=== PATIENT | female | born 1980 | race Caucasian/White ===

== ENCOUNTER → 2021-08-16 15:17 | Outpatient (CLI) | payer BC, SELFPAY ==
--- NOTE | ~2021-08-16 | MM_ITS ---
EXAMINATION: MM screening arlyn BI w [facility] HISTORY: Screening mammogram TECHNIQUE: Craniocaudal and mediolateral oblique 3-D tomosynthesis images were obtained and synthetic 2-D images were generated. CAD analysis was submitted and interpreted. COMPARISON: No prior mammogram is available for comparison at this institution. BREAST PARENCHYMAL COMPOSITION: There are scattered areas of fibroglandular density. FINDINGS: There is no evidence of suspicious mass, calcification, or architectural distortion to sugg est malignancy in either breast. There has been no suspicious interval change. IMPRESSION: 1. No mammographic evidence of malignancy. 2. Recommend routine screening mammography in one year. BI-RADS Category 1: Negative Reviewed, dictated and finalized at location A.
== END ==
PROVIDERS: PCP Nurse Practitioner; Visit Provider Nurse Practitioner
DX: Z12.31 Encounter for screening mammogram for malignant neoplasm of breast (principal)
CPT/HCPCS: 77063; 77067

== ENCOUNTER 2023-09-30 09:01 | Outpatient (CLI) | payer BC, SELFPAY ==
--- NOTE | ~2023-09-30 | MM_ITS ---
EXAMINATION: MM screening arlyn BI w roxana HISTORY: Screening TECHNIQUE: Craniocaudal and mediolateral oblique 3-D tomosynthesis images were obtained and synthetic 2-D images were generated. CAD analysis was submitted and interpreted. COMPARISON: 08/16/2021 BREAST PARENCHYMAL COMPOSITION: Not dense: There are scattered areas of fibroglandular density. FINDINGS: There is no evidence of suspicious mass, calcification, or architectural distortion to sugg est malignancy in either breast. There has been no suspicious interval change. IMPRESSION: 1. No mammographic evidence of malignancy. 2. Recommend routine screening mammography in one year. BI-RADS Category 1: Negative Reviewed, dictated and finalized at location B.
== END 2023-09-30 09:02 | disposition home or self-care (01) ==
PROVIDERS: PCP Nurse Practitioner; Visit Provider Nurse Practitioner
DX: Z12.31 Encounter for screening mammogram for malignant neoplasm of breast (principal)
CPT/HCPCS: 77063; 77067

== ENCOUNTER 2024-08-02 09:16 | Observation (INO) | payer BC, SELFPAY ==
[2024-08-02] VITALS (15 sets, daily range): BP systolic 104–142; BP diastolic 57–98; PULSE 79–125; RESP 13–18; TEMP 36.3–36.8; O2SAT 99–100; BMI 32.1
--- NOTE | 2024-08-02 09:37 | ED_ITS ---
HPI - General Adult General Chief complaint: Vaginal Bleeding Stated complaint: vag bleeding for 35 days Time Seen by Provider: 08/02/24 09:23 History of Present Illness HPI narrative: Nuha Johnson is a 43 y/o female who presents with complaints of having vaginal bleeding for 35 days. She states that she has seen her OBGYN Dr. Shoemaker and her PCP for this. She had an US completed 2 weeks ago and states that she has fibroids and a cyst on her ovary, she was started on control and scheduled for a hysterectomy for August 16. She states that since starting the control she was having severe headaches and not feeling well so she stopped the bc and states the vaginal bleeding returned worse. She stopped the bc 5 days ago and then restarted it 2 days ago and feels that bleeding has improved a little since restarting but feels that this is affecting her daily living and difficult to go to work because of the bleeding and she is feeling. Denies headache/chest pain/sob at this time. She states she feels more abdominal cramping then before over the past few days Related Data Home Medications ?Medication ?Instructions ?Recorded ?Confirmed ?Last Taken ?Type No Home Medications 08/02/24 08/02/24 Unknown History Allergies Allergy/AdvReac Type Severity Reaction Status Date / Time No Known Allergies Allergy Verified 08/02/24 09:55 Review of Systems 2 Review of Systems: All systems reviewed & are unremarkable except as noted in HPI and below PMFSH Social History Social History Smoking status: Never smoker Alcohol intake: never Substance use: never Do You Feel Safe in your Home?: Yes Lack of Transportation: No Lack of Food: Never True Current Housing: I Have Housing Concerned About Future Housing: No Difficulty Paying Gas/Electric Bills: No Difficulty Paying for Meds: No Currently Unemployed: No Education: High School Diploma/GED Difficulty w/ Childcare or Family Care: No Spiritual care concerns: No Exam 2 Narrative: GENERAL: Well-appearing, well-nourished, and in no acute distress. HEAD: Normocephalic, atraumatic. EYES: PERRLA and EOMI. ENT: Nares clear, no rhinorrhea or epistaxis. Mucous membranes moist. Oropharynx without tonsillar hypertrophy exudate or other lesions. NECK: Supple. No adenopathy or masses. No carotid bruits or JVD CHEST: Clear to auscultation. No respiratory distress. No wheezes rales or rhonchi HEART: Regular rate and rhythm. No murmur heard. Normal peripheral pulses. ABDOMEN: Soft, nontender, nondistended, normal active bowel sounds. EXTREMITIES: Normal range of motion. No edema. SKIN: Warm, dry, no rash. NEURO: No focal deficits. Alert and oriented x3. PSYCH: Normal mood and affect. Course Vital Signs Vital signs: Vital Signs Temperature 36.7 C 08/02/24 09:41 Pulse Rate 93 08/02/24 09:41 Respiratory Rate 16 08/02/24 09:41 Blood Pressure 142/98 H 08/02/24 09:41 Pulse Oximetry 99 08/02/24 09:41 Oxygen Delivery Room Air 08/02/24 09:41 Temperature 36.3 C L 08/02/24 17:20 Pulse Rate 125 H 08/02/24 17:20 Respiratory Rate 18 08/02/24 17:20 Blood Pressure 122/76 08/02/24 17:20 Pulse Oximetry 100 08/02/24 17:20 Oxygen Delivery Room Air 08/02/24 15:26 Medical Decision Making MDM Narrative Medical decision making narrative: 43 y/o with continued and maybe worsening vaginal bleeding for 35 days. scheduled for a hysterectomy on August 16 concern for : anemia/ dehydration/ CBC: Hemoglobin 7.2, hematocrit 23.1, platelets 552 CMP- Glucose 116 UA- trace ketones, blood urine preg- Negative PT / INR- within normal limits Pelvic exam - + active bleeding, with clots unable to visualize the cervix Consulted with Dr. Shoemaker who recommends admitting pt for q6 IV Estrogen and transfuse 2 units of PRBC Patient updated on plan and is agreeable to this plan Medical Records Medical records reviewed: Yes I reviewed the external patient's medical records. Vital Signs Vital Signs: Vital Signs Temperature 36.7 C 08/02/24 09:41 Pulse Rate 93 08/02/24 09:41 Respiratory Rate 16 08/02/24 09:41 Blood Pressure 142/98 H 08/02/24 09:41 Pulse Oximetry 99 08/02/24 09:41 Oxygen Delivery Room Air 08/02/24 09:41 Temperature 36.3 C L 08/02/24 17:20 Pulse Rate 125 H 08/02/24 17:20 Respiratory Rate 18 08/02/24 17:20 Blood Pressure 122/76 08/02/24 17:20 Pulse Oximetry 100 08/02/24 17:20 Oxygen Delivery Room Air 08/02/24 15:26 Vitals reviewed by me Lab Data Lab results reviewed: Yes I reviewed the patient's lab results. 08/02/24 09:50 08/02/24 09:50 Labs: Lab Results 08/02/24 08/02/24 08/02/24 Range/Units 09:50 09:57 11:57 WBC 6.3 (4.5-10.0) K/mm3 RBC 2.76 L (4.2-5.4) M/mm3 Hgb 7.2 L (12.0-15.0) g/dL Hct 23.1 L (37.0-47.0) % MCV 83.7 (80-100) fl MCH 26.1 (26-34) pg MCHC 31.2 L (32-36) g/dl RDW 13.7 (11.5-14.5) % Plt Count 552 H (150-375) k/mm3 MPV 9.0 (7.4-10.4) fl Immature Gran % (Auto) 0.3 (0-0.5) % Neut % (Auto) 63.1 (45.5-73.1) % Lymph % (Auto) 26.8 (18.3-44.2) % [place] % (Auto) 7.3 (2.6-8.5) % Eos % (Auto) 2.2 (0-4.4) % Baso % (Auto) 0.3 (0.2-1.2) % Lymph # (Auto) 1.70 (0.9-3.2) K/mm3 [place] # (Auto) 0.5 (0.1-0.6) K/mm3 Eos # (Auto) 0.1 (0-0.3) K/mm3 Baso # (Auto) 0.0 (0.0-0.1) K/mm3 Abs Immat Gran (auto) 0.02 (0.00-0.031) K/mm3 Absolute Neuts (auto) 4.0 (1.3-6.7) K/mm3 Absolute Nucleated RBC 0.000 (0.0-0.012) K/mm3 Nucleated RBC % 0.0 (0.0-0.2) % PT 13.0 (11.1-14.7) Seconds INR 1.0 APTT 26.1 (22.3-36.8) Seconds Sodium 137 (137-145) mmol/L Potassium 3.8 (3.4-5.0) mmol/L Chloride 107 (98-107) mmol/L Carbon Dioxide 22 (22-30) mmol/L Anion Gap 8 (4-12) mmol/L BUN 9 (7-17) mg/dL Creatinine 0.76 (0.7-1.0) mg/dL Estim Creat Clear Calc 79 ml/min Estimated GFR > 60 (59 - ) Glucose 116 H (65-110) mg/dL Calcium 8.8 (8.4-10.2) mg/dL Total Bilirubin 0.2 (0.2-1.3) mg/dL AST 17 (14-36) U/L ALT 12 (6-35) U/L Alkaline Phosphatase 63 (38-126) U/L Total Protein 6.9 (6.3-8.2) g/dL Albumin 3.8 (3.5-5.1) g/dL Urine Color Yellow (Yellow) Urine Appearance Clear (Clear) Urine pH 5.0 (5.0-9.0) Ur Specific Kevin 1.030 (1.001-1.035) Urine Protein Trace (Negative) mg/dL Urine Glucose (UA) Negative (Negative) mg/dL Urine Ketones Trace H (Negative) mg/dL Ur Blood (Man) 3+ H (Negative) Urine Nitrate Negative (Negative) Urine Bilirubin Negative (Negative) Urine Urobilinogen 0.2 (<2.0) mg/dL Leukocyte Esterase Rfl Negative (Negative) ISAAC/UL Urine RBC >100 H (0-2) /hpf Urine WBC 0-5 (0-3) /hpf Ur Squamous Epith Cells None seen (Few) /hpf Urine Bacteria None seen /hpf Urine Casts 0-2 POC Urine HCG, Qual Negative (Negative) Blood Type O Positive Antibody Screen Negative Crossmatch See Detail Discharge Plan Discharge Clinical Impression: Abnormal vaginal bleeding, Dysfunctional uterine bleeding Anemia Qualifiers: Anemia type: unspecified type Qualified Code(s): D64.9 - Anemia, unspecified Patient Disposition: Still a Patient Condition: Stable Time of Disposition: 19:16
--- OUTSIDE RECORDS SUMMARY | 2024-08-02 09:46 | XMS_ITS | Data Portability ---
Author Organization [facility] Address [address] [place] [address] Assessment Encounter Date Assessment Date Assessment LastModified by Organization Details LastModified Time 2023 2023 Annual gynecological exam performed. Patient will come back in a year unless there are new symptoms. [email or web address] Not available 2023 10:25:34 Plan of Treatment Reminders Order Date Submit Date Provider Last Modified By Organization Details Last Modified Time Details Appointments SURG PRE OP 2024 03:15P Remigio SHOEMAKER MD Not available Not available Not available SURG Total Lap Hyst 2024 09:45A Remigio SHOEMAKER MD Not available Not available Not available SURG POST OP 2024 09:30A Remigio SHOEMAKER MD Not available Not available Not available WE[facility]OM[facility]-EST 2024 08:15A NARESH Stacy Not available Not available Not available Lab dhea-sulf ate, serum [address] [facility] (Lab), [address], [place], [address], 07/17/2024 15:23:39 hormone panel, serum or plasma [address] [facility] (Lab), [address], [place], [address], 07/17/2024 15:23:40 progester one, serum [address] [facility] (Lab), [address], [place], [address], 07/17/2024 15:23:39 prolactin , serum [address] [facility] (Lab), [address], [place], [address], 07/17/2024 15:23:40 shbg (sex hormone-b inding globulin) , serum [address] [facility] (Lab), [address], [place], [address], 07/17/2024 15:23:41 TSH, serum or plasma [address] [facility] (Lab), [address], [place], [address], 07/17/2024 15:23:41 testoster one free/test osterone total, ratio, serum [address] [facility] (Lab), [address], [place], [address], 07/17/2024 15:23:42 CBC w/ diff [address] [facility] (Lab), [address], [place], [address], 07/18/2024 04:04:47 test, urine 2024 025 [facility], [address], [address], [place], [address], 07/11/2024 14:09:09 Referral None recorded. Procedures None recorded. Surgeries total abdominal hysterect marcial with salpingec luzmaria (SURG) 2024 025 [email or web address] [facility], [address], [place], [address], 07/21/2024 11:57:58 Imaging US, pelvis 2024 025 [email or web address] [address], [address], [place], [address], 07/12/2024 21:37:50 US, transvagi nal 2024 025 [email or web address] [address], [address], [place], [address], 07/12/2024 21:37:50 MAMMO, screening , digital, bilateral 2023 024 [facility], [address], [place], [address], 09/30/2023 12:27:58 Medication Orders None recorded. Patient TargetsNo targets recorded. Patient InstructionsNo instructions recorded. Reason for Referral None Reported. Results Created Date Observation Date Name Description Value Unit Range Abnormal Flag Note LastModifiedBy Organization Detail LastModifiedTime 09/24/19 24 2023 IMAGE GUIDE D PAP AND HPV REGAR DLESS image guided Pap, HPV regardless of Pap result SEE RESULT S BELOW CASE REPOR T: Cytol ogy Gynec ologi cele Repor t Case: [id number] Autho roxana ramirez Provi michael: Alisha Anderson, JEFFREY Colle cted: 09/23 1606 Order ing Locat ion: [place] Patho logy Recei man: 09/24 0049 First Scree n: Deanna Spangler ay, CT Speci men: Screvitaliy perdue Pap - Image d, Cervi x STATE MENT OF ADEQU ACY: Satis facto ry for evalu ation Trans forma tion zone compo nent prese nt ----- ----- ----- ----- ----- ----- ----- ----- ----- ----- ----- ----- ----- ----- ----- ----- ----- ---- FINAL DIAGN OSIS: Negat sofi for Intra epith elial Navjot sutton or Kitty garduno (NIL) . Ileanaa l organ isms morph ologi tanisha consi stent with Susana da spp. Elect kenney garcia valeri d by Deanna Spangler, CT on 024 at 8:56 AM ----- ----- ----- ----- ----- ----- ----- ----- ----- ----- ----- ----- ----- ----- ----- ----- ----- ---- HPV RESUL TS: HPV mRNA E6/E7 : No HPV mRNA Detec gilberto NOTE: This high risk HPV mRNA assay detec ts fourt een high- risk HPV types (16, 18, 31, 33, 35, 39, 45, 51, 52, 56, 58, 59, 66, 68) witho ut diffe renti ation . COMME NT: This speci men was revie wed by a Cytot echno logis t and/o r Patho logis t (as indic ated in this repor t) after evalu ation using the Thinp rep Imagi ng Syste m. CLINI CELE INFOR MATIO N: Menst rual Statu s: LMP (if appli cable ): 2023 Clini cele Histo ry/Pr eviou s Pap: Type of Neopl beatrice (if appli cable ): Signi fican t Clini cele Findi ngs: Other Histo ry: Hormo dario (if appli cable ): PAP EDUCA TYSON L NOTE: The Pap Test is a scree nette test with an inher ent false negat sofi rate. Liqui d-bas ed sampl ing may decre ase, but will not elimi natasha, false negat sofi resul ts. A negat sofi resul t does not precl ude the prese nce and/o r devel opmen t of disea se, since the prese nce of abnor mal cells in the sampl e depen ds on the locat ion of the lesio n and sampl ing techn ique. Faye nued regul ar scree nette is the best metho d of cance r preve ntion . If repor gilberto cytol ogic findi ng do not corre late with physi cele and/o r histo rical findi ngs, furth er inves tigat ion is recom maryanne d, as clini tanisha zepeda nted. Not Available [facility] (Lab) [address], [place], [address], 10/01/2023 10:00:20 07/12/19 25 07/11/2024 pregn law test, urine HCG negati ve Not Available [facility] [address], [place], [address], 07/11/2024 14:09:02 07/16/19 25 07/15/2024 SURGI CELE PATHO LOGY surgical pathology SEE RESULT S BELOW CASE REPOR T: Surgi cele Patho logy Repor t Case: [id number] Autho roxana Provi michael: Jennifer Shoemaker MD Colle cted: 07/15 1507 Order ing Locat ion: [place] Patho [place]y Recei man: 07/16 0042 Patho logis t: Abdulaziz Ahmadi MD Speci men: Radha simmons, EMB ----- ----- ----- ----- ----- ----- ----- ----- ----- ----- ----- ----- ----- ----- ----- ----- ----- ---- FINAL DIAGN OSIS: Endom etriu m, biops y: -Rare minut e super ficia l strip s of inact sofi radha simmons. -No evide nce of hyper plasi a or malig laureen . -Frag ments of babar barrios erbert al mucos a. Elect kenney trammell d by Abdulaziz Ahmadi MD on 2024 at 1001 CDT ----- ----- ----- ----- ----- ----- ----- ----- ----- ----- ----- ----- ----- ----- ----- ----- ----- ---- CLINI CEEL INFOR MATIO N: ABNOR MAL UTERI NE BLEED ING MICRO SCOPI C DESCR IPTIO N: A micro scopi c exami natio n was perfo rmed. Digit al imagi ng was used in the diagn ostic asses sment of this case. GROSS DESCR IPTIO N: A. Endom etriu m. The speci men is label ed with the patie nt's name and demog raphalf cs only. Recei man in forma brianna is a 5.1 x 2.0 x 0.3 [address] gate of dark red tissu e. The entir e speci mino is submi tted in casse ttes A1-A4 . Gross ed by Briseida Blanca on Not Available [facility] (Lab) [address], [place], [address], 07/19/2024 11:05:10 09/30/19 24 09/30/2023 MAMMO , karinevitaliy nette, digit al, bilat eral No observ ation record ed. [place] [id number], [place], [address], 10/01/2023 10:12:56 07/13/19 25 07/12/2024 US, pelvi s No observ ation record ed. [email or web address] [facility] [address], [place], [address], 07/12/2024 15:17:52 07/13/19 25 07/12/2024 US, trans josh al No observ ation record ed. [email or web address] [facility] [address], [place], [address], 07/12/2024 15:18:00 07/13/19 25 07/12/2024 US, talita salvador No observ ation record ed. [email or web address] [address], [place], [address], 07/13/2024 15:18:59 Result Notes None recorded. Procedures Surgical History Date Name Laterality Status Provider Name and Address Organization Details Recorded Time 07/16/19 25 Endometrial Biopsy completed Linwood Shoemaker MD [address], [place], [address], [facility] 07/15/2024 17:11:55 09/30/19 24 Date of Last Mammogram completed [facility] 07/11/2024 10:31:52 09/24/19 24 Date of Last Pap Smear completed Parris Duenas [facility] 07/15/2024 12:33:02 11/09/19 08 section completed [facility] 07/11/2024 10:34:03 08/26/19 06 Caesarean Section completed Ivory Saha [facility] 2023 15:18:20 Imaging Results None recorded. Procedure Notes None recorded. Medical Equipment None Reported. Allergies No known drug allergies Medications Not known to be on any medication Vitals Date Recorded Body height Body mass index (BMI) Body weight Systolic blood pressure Diastolic blood pressure Provider Name and Address Organization Details Last Updated DateTime 07/11/2024 157.48 cm 32.2 kg/m2 37590.98 g 125 mm[Hg] 84 mm[Hg] [facility] 10:30:19 Date Recorded Body height Body mass index (BMI) Body weight Systolic blood pressure Diastolic blood pressure Provider Name and Address Organization Details Last Updated DateTime 07/15/2024 157.48 cm 31.6 kg/m2 29387.48 g 131 mm[Hg] 87 mm[Hg] Parris Duenas [facility] 05/23/202 5 12:32:20 Date Recorded Body height Body mass index (BMI) Body weight Systolic blood pressure Diastolic blood pressure Provider Name and Address Organization Details Last Updated DateTime 07/21/2024 157.48 cm 32 kg/m2 35788.66 g 108 mm[Hg] 77 mm[Hg] RICCI Rich [facility] 5 10:14:17 Date Recorded Body height Body mass index (BMI) Body weight Systolic blood pressure Diastolic blood pressure Provider Name and Address Organization Details Last Updated DateTime 2023 157.48 cm 29.8 kg/m2 73023.56 g 137 mm[Hg] 86 mm[Hg] Ivory Saha [facility] 4 15:17:34 Social History Question Answer Notes LastModified by Organizat ion Details LastModified Time Tobacco Smoking Status Never Smoker Beth olivera, [facility] 06/18/2021 10:07:09 How Many Years Have You Consumed Alcohol? 10 Information not available 06/18/2021 Are You Blind Or Do You Have Difficulty Seeing? No Information n ot available 06/14/2021 What Is Your Level Of Caffeine Consumption? Occasional Information not available 06/18/2021 How Much Tobacco Do You Chew? None Information not available 06/18/2021 In The 14 Days Before Symptom Onset, Have You Had Close Contact With A Laboratory-confirm ed COVID-19 While That Case Was Ill? No Information n ot available 06/18/2021 In The 14 Days Before Symptom Onset, Have You Had Close Contact With A Person Who Is Under Investigation For COVID-19 While That Person Was Ill? No Information not available 06/18/2021 Have You Been To An Area Known To Be High Risk For COVID-19? No Information not available 06/18/2021 Are You Deaf Or Do You Have Serious Difficulty Hearing? No Information not available 06/14/2021 What Type Of Diet Are You Following? REGULAR Information n ot available 06/14/2021 What Is The Highest Grade Or Level Of School You Have Completed Or The Highest Degree You Have Received? [id number] Information not available 06/18/2021 Are There Any Guns Present In Your Home? No Information not available 06/18/2021 Do You Use Protection During Sex? No Information not available 06/18/2021 Do You Use Your Seat Belt Or Car Seat Routinely? Yes Information not available 06/18/2021 Do You Have Smoke And Carbon Monoxide Detectors In Your Home? Yes Information not available 06/18/2021 How Much Tobacco Do You Smoke? No Information not available 06/18/2021 Do You Use Sunscreen Routinely? No Information not available 06/18/2021 Have You Used IV Drugs? No [email or web address] Information not available 07/15/2024 Do You Have Difficulty Walking Or Climbing Stairs? No Information not available 06/18/2021 Sex: Unknown Functional Status Question Answer Note LastModified by Organizat ion Details LastModified Time Do you use any illicit or recreational drugs? No Information not available 06/18/2021 What is your level of alcohol consumption? None Information not available 2023 Are you able to walk? YESWOREST Information not available 06/14/2021 Are you able to care for yourself? 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 No Information not available 06/18/2021 What is your exercise level? Occasional Information not available 06/14/2021 Mental Status Question Answer Note LastModified by Organization D etails LastModified Time Do you feel stressed (tense, restless, nervous, or anxious, or unable to sleep at night)? [id number] Information not available 06/18/2021 Family History Relationship Description Onset Age of this Age Resolved Age Notes LastModified by Organization Details LastModified Time Mother Malignant tumor of breast Not available 2021 12:16:29 Medical History Condition Response Allergies (Food, seasonal, environmental ) N Other N Drug/Latex Allergies/Reactions N Breast Cancer N Blood Transfusion N Lung Disease N Dermatologic Disorders N Defects or Inherited Disease N Breast Problem N Gestational Diabetes N Hematologic disorders N Anesthesia Complications N History of STI N Deep Vein Thrombosis N Polycystic ovary syndrome N Anxiety Disorder N Autoimmune disease N Arthritis N Polyps N Infertility N History of abnormal pap N Acid Reflux (GERD) N Cancer N Varicosities N Stroke N Neurologic/Epilepsy N Endometriosis N High Cholesterol N Headaches N Fibromyalgia N Kidney Disease N Heart Problems N Thyroid Problems N Kidney or Bladder Problems N GI Problems N Eating Disorder N Anemia N Art (IVF or FET) N Psychiatric Illness N Ovarian Cancer N Diabetes N Pulmonary (TB, Asthma) N Hepatitis/Liver Disease N No Past Medical History N Eczema N Urinary Tract Infection N Abuse/Domestic Violence N Asthma N Trauma/Violence N Depression/ depression N Heart Disease N Pre-Eclampsia N Hypertension N Osteoporosis N Thrombophilias N Gynecological History Statement/Question Response Date of Last Mammogram 09/30/2023 Flow Moderate Date of LMP 06/20/2024 N Was last menstrual period normal N STIs/STDs N Date of Last Colonoscopy Desired Control Method None Abnormal Pap N On BCP's at Conception? N HPV Vaccine N Current Control Method Partner Vas ectomy Age at First Child 24 Are cycles usually normal Y Frequency of Cycle (Q days) 29 Sexually Active? Y Menses Monthly Y Date of DEXA bone scan Age of first menstrual cycle 11 Date of Last Pap Smear 2023 Sexual Problems? N LMP Definite N Obstetrics History GPAL:G 2 P 2 0 0 2 Type Value Full Term 2 Living 2 Total 2 Past Encounters Encounter ID Performer Location Encounter Start Date Encounter Closed Date Diagnosis/Indication Diagnosis SNOMED-CT Code Diagnosis ICD10 Code Diagnosis Note [id number] NARESH Gamble [facility] [address] [address] 06/18/2021 09:53:55 06/18/2021 10:30:25 Family history of breast cancer 414427370 Z80.3 Gynecologi c examination 21213018 Z01.419 Suggested Calcium with Vitamin D 1200-1500m g daily. Patient advised to get an annual flu shot in the fall and she could obtain at [facility] or [facility]. Also to obtain TDap vaccinatio n if you have not had one in the last 10 years. Recommend yearly mammograms . Encouraged monthly self breast exams. Encourage safe sexual practices, to use condoms and limit partners if not already in a monogamous relationsh ip. Engage in daily exercise of low impact aerobic exercise 45-60 minutes 4-5 times weekly. Avoid tobacco and illicit drugs as well as using moderation with alcohol intake less than 1-2 8 oz beverages daily. This lifestyle behavior pattern will lead to less health conditions and longer life span. If BMI greater than 25 weight watchers or dietary consult advised. All questions have been answered. Patient appears to understand informatio n, but if you have any questions please call or respond to this email. Here today for WWE. No gynecologi c issues today.Last pap 2016, normal. No hx of abnormal paps.Pap done todayMammo gram order given, this will be her firstHer mother had breast cancer diagnosed around age 64. We discussed genetic testing, she would like to have this done today. Invitae order given to patient.BP today 138/88, she does not have a PCP. I encouraged her to establish care with a PCP for routine labs and BP check. She will call to schedule one.STI testing declinedRT C in one year for WWE or sooner if needed [id number] NARESH Gamble [facility] [address] [address] 2023 15:03:25 2023 15:56:13 Gynecologic examination 93716239 Z01.419 Z11.51 WWEpap updatedde lined STI screenmamm ogram order givenencou raged annual exam with PCP Patient advised to get an annual flu shot in the fall and she could obtain at local pharmacy. Also to obtain TDap vaccinatio n if you have not had one in the last 10 years. Recommend yearly mammograms . Encouraged monthly self breast exams. Encourage safe sexual practices. Engage in regular exercise. Avoid tobacco and illicit drugs. This lifestyle behavior pattern will lead to less health conditions and longer life span. If BMI greater than 25 dietary consult advised. All questions have been answered. Screening for malignant neoplasm of breast 214448412 Z12.39 [id number] NARESH Gamble [facility] [address] [address] 07/11/2024 09:39:34 07/12/2024 15:09:53 Abnormal uterine bleeding 5448092547 9100 N93.9 UPT (-)Discuss ed recent irregular bleedingla bs ordered, pelvic u/s ordereddis cussed management options (pending results)qu estions answered, precaution s discussed Time spent in visit is a total of 25 mins with at least 50% of visit consisting of counseling and review of plan of care. Patient is to contact office or go to nearest ED/Urgent care if fever >/= 100.1, pain, excessive bleeding, unusual drainage or swelling in area of concern; or experienci ng worsening sx's or new onset of concerning sx's. Understand ing verbalized . All questions answered to patient satisfacti on. [id number] Linwood Shoemaker MD [facility] [address] [address] 07/12/2024 14:22:02 07/12/2024 15:05:52 Menometrorrhagia 024433979 N92.1 [id number] Linwood Shoemaker MD [facility] [address],[place] [address] 07/15/2024 12:23:44 07/18/2024 07:30:59 Endometrium thickened 010250731 R93.89 endometria l biopsy was performed without complicati ons. She tolerated it well. [id number] Linwood Shoemaker MD [facility] [address],[place] [address] 07/21/2024 09:38:57 07/21/2024 10:51:28 Menometrorrhagia 408731024 N92.1 Intramural leiomyoma of uterus 46947446 D25.1 D25.0 D25.2 This patient is a 43-year-ol d female presents for heavy vaginal bleeding. She has longstandi ng very heavy bleeding. Her menses are regular. However, they require double protection . Patient has accidents, getting blood on her bedding and clothing. Is affected work. She changes a pad or tampon every hour. She leaks blood around the pad and tampon. This bleeding has a profound impact on her quality of life and her activities of daily living. Patient has large myomas and a very large uterus. We discussed the etiology, natural history, treatment of fibroid tumors. I spent over 30 minutes on her care in total. She would like definitive surgical treatment. We agreed to move forward with total abdominal hysterecto my and bilateral salpingect marcial. The patient understand s the procedure. The procedure was described to the patient in great detail. the patient also understand s the risks. The risks were also explained in detail. She understand s that injuries May occur during surgery. She understand s these injuries can result in hospitaliz ation, more surgery, and severe illness. She understand s there is risk of hemorrhage and infection. Health Concerns Section Related Observation LastModified by Organization Detai ls LastModified Time None Recorded Concern Status LastModified by Organization Details LastModified Time None Recorded Advance Directives Directive None Recorded Payers Encounter Date Sequence Insurance Name Policy Number Policy Goodwin Covered Member ID Goodwin Member ID Guarantor Name 2023 1 [place] [id number] Nuha Rocaon [id number] Nuha Johnson 07/11/2024 1 [place] [id number] Nuha Johnson [id number] Nuha Johnson 07/12/2024 1 [place] [id number] Nuha Johnson [id number] Nuha Johnson 07/15/2024 1 [place] [id number] Nuha Rocaon [id number] Nuha Johnson 07/21/2024 1 [place] [id number] Nuha Johnson [id number] Nuha Johnson Notes Date Note Type Note Provider Name and Address Organization Details Recorded Time text/html Annual GYNReported bypatient.Menstrual cycle:Normal menses Urinary symptoms:No hematuria; No incontinence Vulva:No genital lesion Vagina:Normal vaginal discharge Breast:No breast pain; No breast lump; No nipple discharge Sexual complaints:No sexual complaints; No pain during intercourse; Normal libido Menopausal Symptoms:No menopausal symptoms; Normal vaginal lubrication Psychological symptoms:No depression; No anxiety; No PMDD Preventive measures:Encourage self breast examination; Encourage regular exercise; Encourage no tobacco use; Encourage regular mammograms starting age 39Notes:43yo WWEno h/o abnormal papslast pap 05/2021 : nilm, HPV (-)mammogram last 2021 NARESH Gamble [address], [place], [address], [facility] 2023 15:48:55 5 text/html 43yo [id number] for evaluation of recent irregular periodhistorically has been having monthly periods, lasting 5 days, moderate to light flowLMP started 06/20/2024 and still continues. She is changing her pad every 4-5 hours at most.BC - partner with vasectomylast pap 09/2023 : nilm, HPV (-) NARESH Gamble [address], [place], [address], [facility] 07/12/2024 13:45:02 5 text/html this patient is a 43-year-old female presents for endometrial biopsy. The procedure was explained to the patient in detail. She understands the procedure. She understands the risks, benefits, and alternatives. She has completed the informed consent process and is ready to proceed. Linwood Shoemaker MD [address], [place], [address], [facility] 07/15/2024 17:12:40 5 text/html This patient is a 43-year-old female presents for heavy vaginal bleeding. She has longstanding very heavy bleeding. Her menses are regular. However, they require double protection. Patient has accidents, getting blood on her bedding and clothing. Is affected work. She changes a pad or tampon every hour. She leaks blood around the pad and tampon. This bleeding has a profound impact on her quality of life and her activities of daily living. Patient has large myomas and a very large uterus. We discussed the etiology, natural history, treatment of fibroid tumors. I spent over 30 minutes on her care in total. She would like definitive surgical treatment. We agreed to move forward with total abdominal hysterectomy and bilateral salpingectomy. The patient understands the procedure. The procedure was described to the patient in great detail. the patient also understands the risks. The risks were also explained in detail. She understands that injuries May occur during surgery. She understands these injuries can result in hospitalization, more surgery, and severe illness. She understands there is risk of hemorrhage and infection. Linwood Shoemaker MD [address], [place], [address], [place] [facility] 07/21/2024 10:45:45 OBGyn Episode Ob Episode Information Episode Created Date Number of Fetuses Patient Bloodtype Patient rh Status Prepregnancy Weight lbs Domestic Partner Domestic Partner Phone Father Name Process Description Writer Status 06/15/19 22 1 CLOSED Fetus Data First Name Last Name Admitted to NICU Weight (g) Sex Living Outcome Pediatric Complications Fetus ID Race Codes Race Delivery Type Full Term [id number] Primary Marty Calculation Initial Marty Date Initial Exam Date Initial Exam Provider Initial Ultrasound Date Last Menstrual Period Date Ultra Sound Weeks Gestation 0 Eighteen To Twenty Week Marty Update Ultra Sound Date Fundal Height At Umbil Quickening Date Ultra Sound Latest Weeks Gestation Final Marty Confirmed By Final Marty Confirmed Date Final Marty Date Ultra Sound Latest Days Gestation 0 0 Menstrual History Last Menstrual Date Menses Monthly On Bcp Conception Prior Menses Frequency Hcg Plus Date Menarche Onset Age Delivery Information Delivery Date Delivery Type Labor Anesthesia Weeks Gestation Incision Type Labor Labor Length Hrs Delivered By Post Complications Tubal Sterilization Discharge Date Comments 6 Discharge Information Feeding Method Contraceptive Method Maternal HG B and HCT Levels Ob Episode Information Episode Created Date Number of Fetuses Patient Bloodtype Patient rh Status Prepregnancy Weight lbs Domestic Partner Domestic Partner Phone Father Name Process Description Writer Status 06/15/19 22 1 CLOSED Fetus Data First Name Last Name Admitted to NICU Weight (g) Sex Living Outcome Pediatric Complications Fetus ID Race Codes Race Delivery Type Full Term [id number] Repeat Marty Calculation Initial Marty Date Initial Exam Date Initial Exam Provider Initial Ultrasound Date Last Menstrual Period Date Ultra Sound Weeks Gestation 0 Eighteen To Twenty Week Marty Update Ultra Sound Date Fundal Height At Umbil Quickening Date Ultra Sound Latest Weeks Gestation Final Marty Confirmed By Final Marty Confirmed Date Final Marty Date Ultra Sound Latest Days Gestation 0 0 Menstrual History Last Menstrual Date Menses Monthly On Bcp Conception Prior Menses Frequency Hcg Plus Date Menarche Onset Age Delivery Information Delivery Date Delivery Type Labor Anesthesia Weeks Gestation Incision Type Labor Labor Length Hrs Delivered By Post Complications Tubal Sterilization Discharge Date Comments 8 Discharge Information Feeding Method Contraceptive Method Maternal HG B and HCT Levels
--- OUTSIDE RECORDS SUMMARY | 2024-08-02 09:46 | XMS_ITS | Encounter Summary ---
Author Organization [facility] Address [address] [place] [address] Care Team Providers Care Commissioned Security Officer Name Role Phone Unavailable Primary Care Provider Unavailabl e Encounter Details Date Type Department Care Team (Late st Contact Info) Description 11/05/2007 Outpatient Historical HIS PATIENT [place], [place] [address] [place] [address] Normal Delivery; Deliv Social History Tobacco Use Types Packs/Day Years Used Date Smoking Tobacco: Never Assessed Comments Unknown Sex and Gender Information Value Date Recorded Sex Assigned at Not on file Legal Sex Female 5:37 AM JOB TRAINER Gender Identity Not on file Sexual Orientation Not on file documented as of this encounter Plan of Treatment Not on file documented as of this encounter Procedures Procedure Name Priority Date/Time Associated Diagnosis Comments CBC WITH DIFFERENTIAL Routine 11/08/2007 10:36 AM CDT URINALYSIS W/REFLEX MICROSCOPIC Routine 11/08/2007 10:36 AM CDT TYPE AND SCREEN Routine 11/08/2007 10:36 AM CDT documented in this encounter Results * TYPE AND SCREEN (11/08/2007 10:36 AM CDT) HISTORY CHECK No Historical ABO/Rh [facility] SPECIMEN LIFE 3 days from drawdate [facility] ABO/RH TYPE O Positive [facility] ANTIBODY SCREEN Negative [facility] Blood specimen (specimen) 11/08/2007 10:36 AM CDT us Kun Mccabe MD BLOOD BANK ORDERABLES Edite d Performing Organization Address City/[facility] Co de Phone Number INTERFACE SYSTEM Refer to clinic/hospital department [facility] CLIA# [id number] [address] [place] [address] * (ABNORMAL) URINALYSIS (11/08/2007 10:36 AM CDT) SPECIFIC GRAVITY UA 1.018 1.001 - 1.035 [facility] GLUCOSE UA Negative Negative [facility] BLOOD UA Negative Negative [facility] COLOR UA Yellow [facility] NITRITE UA Negative Negative [facility] BACTERIA UA 1+(A) None Seen /HPF [facility] UROBILINOGEN UA <1 <=1 mg/dL [facility] PH UA 6.0 5.0 - 8.0 [facility] WBC UA 18(H) 0 - 5 /HPF [facility] KETONES UA Negative Negative [facility] CLARITY UA Slt. Cloudy(A) Clear [facility] BILIRUBIN UA Negative Negative [facility] PROTEIN UA Trace(A) Negative [facility] EPITHELIAL CELLS, URINE 5-10 /HPF [facility] LEUKOCYTE ESTERASE UA 2+(A) Negative [facility] RBC UA 1 0 - 4 /HPF [facility] Urine specimen (specimen) 11/08/2007 10:36 AM CDT 11/08/2007 10:37 AM CDT us Kun Mccabe MD URINE ORDERABLES Final Resu lt Performing Organization Address City/[facility]/ZIP Co de Phone Number INTERFACE SYSTEM Refer to clinic/hospital department [facility] CLIA# [id number] [address] [place] [address] * CBC WITH DIFFERENTIAL (11/08/2007 10:36 AM CDT) PLATELETS 191 140 - 350 K/uL [facility] HEMOGLOBIN 12.8 11.8 - 14.8 g/dL [facility] RDW 13.0 11.5 - 14.5 % [facility] WBC 7.0 4.0 - 9.8 K/uL [facility] MCH 31.7 27.2 - 32.6 pg [facility] MPV 11.2 9.3 - 12.4 fL [facility] HEMATOCRIT 37.6 35.5 - 44.0 % [facility] RDW-STDEV 44.0 37.1 - 48.7 fL [facility] RBC 4.04 3.90 - 4.90 M/uL [facility] MCHC 34.0 31.5 - 35.5 % [facility] MCV 93.1 82.0 - 99.0 fL [facility] EOSINOPHILS 1 0 - 7 % [facility] EOSINOPHIL ABSOLUTE 0.04 0.00 - 0.70 K/uL [facility] LYMPHOCYTES 25 16 - 45 % [facility] LYMPHOCYTE ABSOLUTE 1.72 0.70 - 4.50 K/uL [facility] BASOPHILS 0 0 - 2 % [facility] BASOPHILS ABSOLUTE 0.02 0.00 - 0.20 K/uL [facility] MONOCYTES 12 3 - 13 % [facility] MONOCYTE ABSOLUTE 0.82 0.10 - 1.30 K/uL [facility] NEUTROPHILS 63 45 - 70 % [facility] NEUTROPHIL ABSOLUTE 4.40 1.90 - 7.00 K/uL [facility] Blood specimen (specimen) 11/08/2007 10:36 AM CDT 11/08/2007 10:36 AM CDT us Kun Mccabe MD HEMATOLOGY ORDERABLES Edite d INTERFACE SYSTEM Refer to clinic/hospital department [facility] CLIA# [id number] [address] [place] [address] documented in this encounter Visit Diagnoses Diagnosis Normal delivery delivery, without mention of indication, delivered, with or without mention of antepartum condition documented in this encounter
--- OUTSIDE RECORDS SUMMARY | 2024-08-02 09:46 | XMS_ITS | Clinical Summary ---
Author Organization [facility] Address [address] [place] [address] Phone Care Team Providers Care Date Night Caregiver Name Role Phone Provider, None Primary Care Provider Unavailabl e Allergies No known active allergies Social History Tobacco Use Types Packs/Day Years Used Date Smoking Tobacco: Never Smokeless Tobacco: Never Alcohol Use Standard Drinks/Week Comments Yes 5 (1 standard drink = 0.6 oz pur e alcohol) every day AUDIT-C Answer Date Recorded Q1: How often do you have a drink containing alc ohol? Never 12/05/2019 Average Number of Drinks Not on file Frequency of Binge Drinking Not on file 11/23 Comments No Sex and Gender Information Value Date Recorded Sex Assigned at Not on file Legal Sex Female 2:29 PM CDT Gender Identity Not on file Sexual Orientation Not on file Last Filed Vital Signs Vital Sign Reading Time Taken Comments Blood Pressure 126/89 12/05/2019 7:15 PM CDT Pulse 75 12/05/2019 7:15 PM CDT Temperature 36.7 C (98 F) 12/05/2019 2:52 PM CDT Respiratory Rate 14 12/05/2019 7:15 PM CDT Oxygen Saturation 98% 12/05/2019 7:15 PM CDT Inhaled Oxygen Concentration - - Weight 69.9 kg (154 lb) 12/05/2019 2:52 PM CDT Height 157.5 cm (5' 2) 12/05/2019 2:52 PM CDT Body Mass Index 28.17 12/05/2019 2:52 PM CDT Plan of Treatment Health Maintenance Due Date Last Done Comments Hepatitis C Virus (HCV) Screening 1979 TdaP Immunization 1979 Hepatitis B Immunization (1 of 3 - 19+ 3-dose series) 09/23/1998 SARS-COV-2 Immunization (2 - season) 2023 12/19/2020 Influenza Immunization (Seas on Ended) 2024 Respiratory Syncytial Virus (RSV) Immunization (Adult) (1 - 1-dose 75+ series) 09/23/2054 Human Papillomavirus (HPV) Immunization Aged Out No longer eligible b ased on patient's age to complete this topic Meningococcal Immunization (ACWY) Aged Out No longer eligible based on patient's age to complete this topic Pneumococcal Immunization Combined Aged Out No longer eligible based on patient's age to complete this topic Rotavirus Immunization Aged Out No lo nger eligible based on patient's age to complete this topic Insurance [facility] Care Teams Date Night Caregiver Relationship Specialty Start Date End Date Provider, None [place] PCP - General 12/05/19
--- OUTSIDE RECORDS SUMMARY | 2024-08-02 09:46 | XMS_ITS | Clinical Summary ---
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
[2024-08-02 09:58] LABS: Basophils Percent Auto 0.3 % (0.2-1.2); Eosinophils Absolute Auto 0.1 K/mm3 (0-0.3); Eosinophils Percent Auto 2.2 % (0-4.4); Hematocrit 23.1 % (37.0-47.0); Hemoglobin 7.2 g/dL (12.0-15.0); Immature Granulocyte Absolute 0.02 K/mm3 (0.00-0.031); Immature Granulocyte Percent A 0.3 % (0-0.5); Lymphocytes Percent Auto 26.8 % (18.3-44.2); Mean Corpuscular HGB Conc 31.2 g/dl (32-36); Mean Corpuscular Hemoglobin 26.1 pg (26-34); Mean Corpuscular Volume 83.7 fl (80-100); Monocytes Absolute Auto 0.5 K/mm3 (0.1-0.6); Monocytes Percent Auto 7.3 % (2.6-8.5); Neutrophils Percent Auto 63.1 % (45.5-73.1); Platelet Count Result 552 k/mm3 (150-375); Red Blood Count 2.76 M/mm3 (4.2-5.4); Red Cell Distribution Width 13.7 % (11.5-14.5); White Blood Count 6.3 K/mm3 (4.5-10.0)
[2024-08-02 10:00] LABS: BEDSIDEPREGUCG Negative (Negative)
[2024-08-02 10:08] LABS: Alanine Aminotransferase 12 U/L (6-35); Albumin Level 3.8 g/dL (3.5-5.1); Alkaline Phosphatase 63 U/L (38-126); Anion Gap 8 mmol/L (4-12); Aspartate Amino Transferase 17 U/L (14-36); Bilirubin,Total 0.2 mg/dL (0.2-1.3); Blood Urea Nitrogen 9 mg/dL (7-17); Calcium 8.8 mg/dL (8.4-10.2); Carbon Dioxide 22 mmol/L (22-30); Chloride 107 mmol/L (98-107); Estimated CRCL calculation 79 ml/min; Estimated Glomerular Filt Rate > 60; Glucose 116 mg/dL (65-110); Potassium 3.8 mmol/L (3.4-5.0); Sodium 137 mmol/L (137-145); Total Protein 6.9 g/dL (6.3-8.2)
[2024-08-02 10:16] LABS: Partial Thromboplastin Time 26.1 Seconds (22.3-36.8)
--- OUTSIDE RECORDS SUMMARY | 2024-08-02 10:18 | XMS_ITS | Encounter Summary ---
Author Organization [facility] Address [address] [place] [address] Care Team Providers Care Packer Dried Beef Name Role Phone Unavailable Primary Care Provider Unavailabl e Encounter Details Date Type Department Care Team (Late st Contact Info) Description 11/05/2007 Outpatient Historical HIS PATIENT IN A B[place] Glass, [place] 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 Co de Phone Number INTERFACE SYSTEM Refer to clinic/hospital department [facility] CLIA# [id number] [address] [place] [address] * (ABNORMAL) URINALYSIS (11/08/2007 10:36 AM CDT) SPECIFIC GRAVITY UA 1.018 1.001 - 1.035 [facility] GLUCOSE UA Negative Negative [facility] BLOOD UA Negative Negative [facility] COLOR UA Yellow [facility] NITRITE UA Negative Negative [facility] BACTERIA UA 1+(A) None Seen /HPF [facility] UROBILINOGEN UA <1 <=1 mg/dL [facility] PH UA 6.0 5.0 - 8.0 [facility] WBC UA 18(H) 0 - 5 /HPF [facility] KETONES UA Negative Negative [facility] CLARITY UA Slt. Cloudy(A) Clear [facility] BILIRUBIN UA Negative Negative [facility] PROTEIN UA Trace(A) Negative [facility] EPITHELIAL CELLS, URINE 5-10 /HPF [facility] LEUKOCYTE ESTERASE UA 2+(A) Negative [facility] RBC UA 1 0 - 4 /HPF [facility] Urine specimen (specimen) 11/08/2007 10:36 AM CDT 11/08/2007 10:37 AM CDT us Kun Mccabe MD URINE ORDERABLES Final Resu lt Performing Organization Address City/[facility]/ZIP Co de Phone Number INTERFACE SYSTEM Refer to clinic/hospital department [facility] CLIA# [id number] [address] [place] [address] * CBC WITH DIFFERENTIAL (11/08/2007 10:36 AM CDT) PLATELETS 191 140 - 350 K/uL [facility] HEMOGLOBIN 12.8 11.8 - 14.8 g/dL [facility] RDW 13.0 11.5 - 14.5 % [facility] WBC 7.0 4.0 - 9.8 K/uL [facility] MCH 31.7 27.2 - 32.6 pg [facility] MPV 11.2 9.3 - 12.4 fL [facility] HEMATOCRIT 37.6 35.5 - 44.0 % [facility] RDW-STDEV 44.0 37.1 - 48.7 fL [facility] RBC 4.04 3.90 - 4.90 M/uL [facility] MCHC 34.0 31.5 - 35.5 % [facility] MCV 93.1 82.0 - 99.0 fL [facility] EOSINOPHILS 1 0 - 7 % [facility] EOSINOPHIL ABSOLUTE 0.04 0.00 - 0.70 K/uL [facility] LYMPHOCYTES 25 16 - 45 % [facility] LYMPHOCYTE ABSOLUTE 1.72 0.70 - 4.50 K/uL [facility] BASOPHILS 0 0 - 2 % [facility] BASOPHILS ABSOLUTE 0.02 0.00 - 0.20 K/uL [facility] MONOCYTES 12 3 - 13 % [facility] MONOCYTE ABSOLUTE 0.82 0.10 - 1.30 K/uL [facility] NEUTROPHILS 63 45 - 70 % [facility] NEUTROPHIL ABSOLUTE 4.40 1.90 - 7.00 K/uL [facility] Blood specimen (specimen) 11/08/2007 10:36 AM CDT 11/08/2007 10:36 AM CDT us Kun Mccabe MD HEMATOLOGY ORDERABLES Edite d INTERFACE SYSTEM Refer to clinic/hospital department [facility] CLIA# [id number] [address] [place] [address] documented in this encounter Visit Diagnoses Diagnosis Normal delivery delivery, without mention of indication, delivered, with or without mention of antepartum condition documented in this encounter
--- OUTSIDE RECORDS SUMMARY | 2024-08-02 10:18 | XMS_ITS | Clinical Summary ---
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
--- OUTSIDE RECORDS SUMMARY | 2024-08-02 10:18 | XMS_ITS | Clinical Summary ---
Author Organization [facility] Address [address] [place] [address] Phone Care Team Providers Care Hand Embroiderer Name Role Phone Provider, None Primary Care [...] patient's age to complete this topic Insurance [facility] Care Teams Hand Embroiderer Relationship Specialty Start Date End Date Provider, None [place] PCP - General 12/05/19
[2024-08-02 12:09] LABS: Add Urine Microscopic? YES; Appearance Urine Clear (Clear); Bacteria Urine None Seen /hpf; Bilirubin Urine Negative (Negative); Blood Urine 3+ (Negative); Color Urine Yellow (Yellow); Glucose Urine UA Negative (Negative); Ketones Urine Trace mg/dL (Negative); Leukocyte Esterase Ur Negative LEU/UL (Negative); Nitrate Urine Negative (Negative); Non Pathogenic Casts 0-2; Protein Urine Trace mg/dL (Negative); RBC Urine >100 /hpf (0-2); Squamous Epithelial Cell Urine None Seen /hpf (Few); Urobilinogen Urine 0.2 mg/dL (<2.0); WBC Urine 0-5 /hpf (0-3)
[2024-08-02] MEDS: ACETAMINOPHEN 500 MG TABLET 1000 MG PO (13:51)
[2024-08-02] MEDS: KETOROLAC 30 MG/ML VIAL (*BKC) IV PUSH (13:51)
[2024-08-02] MEDS: ESTROGENS, CONJUGATED 25 MG/5 ML VIAL IV PUSH (14:45)
[2024-08-02] MEDS: WATER, STERILE FOR INJECTION 10 ML VIAL XX (14:45)
[2024-08-02] MEDS: SODIUM CHLORIDE 0.9% IV 250 ML 30 ML IV CONT (15:12)
[2024-08-02] MEDS: TUBING, BLOOD PLUM PUMP TUBING 1 EACH XX (15:13)
--- OUTSIDE RECORDS SUMMARY | 2024-08-02 17:16 | XMS_ITS | Encounter Summary ---
Author Organization [facility] Address [address] [place] [address] Care Team Providers Care Firer Boiler Name Role Phone Unavailable Primary Care Provider Unavailabl e Encounter Details Date Type Department Care Team (Late st Contact Info) Description 11/05/2007 Outpatient Historical HIS PATIENT IN [place] B[place] Glass, [place] 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 Gender Identity Not on file Sexual Orientation [...] AM CDT) HISTORY CHECK No Historical ABO/Rh [facility] SPECIMEN LIFE 3 days from drawdate [facility] ABO/RH TYPE O Positive [facility] ANTIBODY SCREEN Negative [facility] Blood specimen (specimen) 11/08/2007 10:36 AM CDT us Kun Mccabe MD BLOOD BANK ORDERABLES Edite d Performing Organization Address City/[facility] Co de Phone Number INTERFACE SYSTEM Refer to clinic/hospital department [facility] CLIA# [id number] [address] [place] [address] * (ABNORMAL) URINALYSIS (11/08/2007 10:36 AM CDT) SPECIFIC GRAVITY UA 1.018 1.001 - 1.035 [facility] GLUCOSE UA Negative Negative [facility] BLOOD UA Negative Negative [facility] COLOR UA Yellow [facility] NITRITE UA Negative Negative [facility] BACTERIA UA 1+(A) None Seen /HPF [facility] UROBILINOGEN UA <1 <=1 mg/dL [facility] PH UA 6.0 5.0 - 8.0 [facility] WBC UA 18(H) 0 - 5 /HPF [facility] KETONES UA Negative Negative [facility] CLARITY UA Slt. Cloudy(A) Clear [facility] BILIRUBIN UA Negative Negative [facility] PROTEIN UA Trace(A) Negative [facility] EPITHELIAL CELLS, URINE 5-10 /HPF [facility] LEUKOCYTE ESTERASE UA 2+(A) Negative [facility] RBC UA 1 0 - 4 /HPF [facility] Urine specimen (specimen) 11/08/2007 10:36 AM CDT 11/08/2007 10:37 AM CDT us Kun Mccabe MD URINE ORDERABLES Final Resu lt Performing Organization Address City/[facility]/ZIP Co de Phone Number INTERFACE SYSTEM Refer to clinic/hospital department [facility] CLIA# [id number] [address] [place] [address] * CBC WITH DIFFERENTIAL (11/08/2007 10:36 AM CDT) PLATELETS 191 140 - 350 K/uL [facility] HEMOGLOBIN 12.8 11.8 - 14.8 g/dL [facility] RDW 13.0 11.5 - 14.5 % [facility] WBC 7.0 4.0 - 9.8 K/uL [facility] MCH 31.7 27.2 - 32.6 pg [facility] MPV 11.2 9.3 - 12.4 fL [facility] HEMATOCRIT 37.6 35.5 - 44.0 % [facility] RDW-STDEV 44.0 37.1 - 48.7 fL [facility] RBC 4.04 3.90 - 4.90 M/uL [facility] MCHC 34.0 31.5 - 35.5 % [facility] MCV 93.1 82.0 - 99.0 fL [facility] EOSINOPHILS 1 0 - 7 % [facility] EOSINOPHIL ABSOLUTE 0.04 0.00 - 0.70 K/uL [facility] LYMPHOCYTES 25 16 - 45 % [facility] LYMPHOCYTE ABSOLUTE 1.72 0.70 - 4.50 K/uL [facility] BASOPHILS 0 0 - 2 % [facility] BASOPHILS ABSOLUTE 0.02 0.00 - 0.20 K/uL [facility] MONOCYTES 12 3 - 13 % [facility] MONOCYTE ABSOLUTE 0.82 0.10 - 1.30 K/uL [facility] NEUTROPHILS 63 45 - 70 % [facility] NEUTROPHIL ABSOLUTE 4.40 1.90 - 7.00 K/uL [facility] Blood specimen (specimen) 11/08/2007 10:36 AM CDT 11/08/2007 10:36 AM CDT us Kun Mccabe MD HEMATOLOGY ORDERABLES Edite d INTERFACE SYSTEM Refer to clinic/hospital department [facility] CLIA# [id number] [address] [place] [address] documented in this encounter Visit Diagnoses Diagnosis Normal delivery delivery, without mention of indication, delivered, with or without mention of antepartum condition documented in this encounter
--- OUTSIDE RECORDS SUMMARY | 2024-08-02 17:16 | XMS_ITS | Clinical Summary ---
Author Organization [facility] Address [address] [place] [address] Care Team Providers Care Oxygen Plant Operator Name Role Phone Unavailable Primary Care Provider Unavailabl e Source Comments [facility],non-owned Affiliates and Associated Physician Practices is amultiple site organization consisting of ambulatory clinics and hospital sitesin [place], [place], [place] and [place]. This disclosure is being madepursuant to the Care Everywhere program and may not contain all information available regarding this patient. Last updated 17.[facility] Allergies No known active allergies Medications * Be aware that medications may not be up to date on this document. Alwaysverify current medications with the patient. fluticasone propionate (FLONASE) 50 MCG/ACT nasal spray [place] 2 sprays into each nostril once daily 1 bottles 12/28/2018 Active Family History Medical History Relation Name Comments Cancer - Breast Mother Relation Name Status Comments Mother Social History Tobacco Use Types Packs/Day Years Used Date Smoking Tobacco: Never Smokeless Tobacco: Never Comments No Sex and Gender Information Value Date Recorded Sex Assigned at Not on file Legal Sex Female 1:20 PM PIE MAKER Gender Identity Not on file Sexual Orientation Not on file Last Filed Vital Signs Vital Sign Reading Time Taken Comments Blood Pressure 122/80 12/28/2018 9:41 AM PIE MAKER Pulse 99 12/28/2018 9:41 AM PIE MAKER Temperature 36.5 C (97.7 F) 12/28/2018 9:41 AM PIE MAKER Respiratory Rate 14 01/06/2018 3:11 PM PIE MAKER Oxygen Saturation 98% 01/06/2018 3:11 PM PIE MAKER Inhaled Oxygen Concentration - - Weight 68 kg (150 lb) 12/28/2018 9:41 AM PIE MAKER Height 160 cm (5' 3) 12/28/2018 9:41 AM PIE MAKER Body Mass Index 26.57 12/28/2018 9:41 AM PIE MAKER Plan of Treatment Health Maintenance Due Date Last Done Comments LIPID TESTING 1979 MAMMOGRAM 1979 HIV SCREENING 09/23/1994 HEPATITIS C SCREENING 09/19/1997 DTAP/TDAP/TD VACCINES (1 - Tdap) 09/23/1998 HEPATITIS B VACCINE (1 of 3 - 19+ 3-dose series) 09/23/1998 COVID-19 VACCINE ( - 2023-2 5 season) 2023 DEPRESSION SCREENING 02/24/2024 INFLUENZA VACCINE (Season Ended) 2024 ZOSTER VACCINE (1 of 2) 09/23/2029 HIB VACCINE Aged Out No longer eligi ble based on patient's age to complete this topic HPV VACCINE Aged Out No longer eligi ble based on patient's age to complete this topic MENINGOCOCCAL (Group B) VACC INE SHARED DECISION-MAKING Aged Out No longer eligibl e based on patient's age to complete this topic MENINGOCOCCAL GROUPS A/C/Y/W VACCINE Aged Out No longer eligible b ased on patient's age to complete this topic PNEUMOCOCCAL VACCINE Aged Out No long er eligible based on patient's age to complete this topic Insurance [employer] Member Subscriber Plan / Payer (Ef fective 2006-Present) Name:Breonna Johnson Relation to Subscriber:Self Name:BREONNA JOHNSON Payer ID:[id number] (NAIC) Type:PPO Address: [facility] [address] [place] [id number]
--- OUTSIDE RECORDS SUMMARY | 2024-08-02 17:16 | XMS_ITS | Clinical Summary ---
Author Organization [facility] Address [address] [place] [address] Phone Care Team Providers Care Stone Paver Name Role Phone Provider, None Primary Care [...] patient's age to complete this topic Insurance [facility] Care Teams Stone Paver Relationship Specialty Start Date End Date Provider, None [place] PCP - General 12/05/19
--- OUTSIDE RECORDS SUMMARY | 2024-08-02 17:16 | XMS_ITS | Clinical Summary ---
Author Organization [facility] Administrative Offices Address [address] [place] [address] Care Team Providers Care Talent Acquisition Coordinator Name Role Phone Unavailable Primary Care Provider Unavailabl e Social History Tobacco Use Types Packs/Day Years Used Date Smoking Tobacco: Never Assessed Comments Unknown Sex and Gender Information Value Date Recorded Sex Assigned at Not on file Legal Sex Female 5:37 AM CLINICAL SUPPORT ASSOCIATE Gender Identity Not on file Sexual Orientation [...]
[2024-08-02] MEDS: ONDANSETRON INJ 4 MG/2 ML VIAL IV PUSH (17:50)
[2024-08-02] MEDS: HYDROcodone/acetaminophen (*CRX) 5-325 MG TABLET 1 TAB PO (23:21)
[2024-08-03] VITALS (7 sets, daily range): BP systolic 90–110; BP diastolic 48–74; PULSE 72–93; RESP 16–18; TEMP 36.4–36.7; O2SAT 93–100
[2024-08-03] MEDS: HYDROcodone/acetaminophen (*CRX) 5-325 MG TABLET 1 TAB PO ×2 (09:23→22:05)
--- NOTE | 2024-08-03 10:56 | PM.IMHP ---
H&P: [facility] History of Present Illness Date/Time: 08/03/24 10:56 Chief Complaint: Vaginal bleeding Narrative: This patient is a 43-year-old female with fibroid uterus. She presented to the emergency department with very heavy vaginal bleeding. Patient is scheduled for hysterectomy. She was found have a hemoglobin of 7 with urgency department. Examination revealed heavy vaginal bleeding. She was started on pain meds, nausea medicine and IV estrogen. Her bleeding did improve with the 1st dose of estrogen but she had significant nausea. To combine Zofran and estrogen entered her repeat dose of estrogen. Stat labs were ordered. She received 2 units of blood. To continue to observe her. She does not tolerate oral contraceptive pills. Review of Systems Review of Systems: All systems reviewed & are unremarkable except as noted in HPI and below Constitutional: Constitutional: Denies chills, Denies fatigue, Denies fever(s) and Denies weakness Eyes: Eyes: Denies blurry vision, Denies change in vision, Denies loss of peripheral vision, Denies loss of vision, Denies other visual disturbances and Denies eye pain ENT: Denies vertigo, Denies dizziness, Denies hearing loss, Denies mouth pain, Denies nasal obstruction, Denies neck mass and Denies neck pain Cardiovascular: Cardiovascular: Denies chest pain, Denies diaphoresis, Denies syncope, Denies leg edema and Denies dyspnea Respiratory: Respiratory: Denies chest congestion, Denies cough, Denies hemoptysis, Denies dyspnea and Denies wheezing Gastrointestinal: Gastrointestinal: Denies abdominal pain, Denies constipation, Denies diarrhea, Denies nausea and Denies vomiting Genitourinary: Genitourinary: Denies hematuria, Denies change in libido, Denies nocturia, Denies genital lesions, Denies flank pain and Denies urinary urgency Musculoskeletal: Musculoskeletal: Denies abnormal gait, Denies back pain, Denies myalgias, Denies arthralgias, Denies joint swelling, Denies muscle weakness and Denies neck pain Integumentary/Breasts: Skin/Breast: Denies swelling, Denies breast pain, Denies breast mass, Denies dry skin, Denies nipple discharge, Denies unusual bruising and Denies jaundice Neurologic: Denies Neuro-related abnormal movements, Denies Abnormal speech present, Denies abnormal gait, Denies behavioral changes, Denies confusion, Denies vertigo, Denies dizziness, Denies syncope, Denies loss of vision, Denies memory loss, Denies convulsions and Denies weakness Psychiatric: Psychiatric: Denies abnormal sleep pattern, Denies behavioral changes, Denies change in libido, Denies confusion, Denies depression, Denies anhedonia and Denies memory loss Endocrine: Endocrine: Reports no additional endocrine complaints, Denies change in libido and Denies fatigue Hematologic/Lymphatic: Hematologic/Lymphatic: Reports no additional hematologic/lymphatic complaints Allergic/Immunologic: Allergic/Immunologic: Reports no additional allergic/immunologic complaints and Denies wheezing PMFSH Social History Social History Smoking status: Never smoker Alcohol intake: never Substance use: never Do You Feel Safe in your Home?: Yes Lack of Transportation: No Lack of Food: Never True Current Housing: I Have Housing Concerned About Future Housing: No Difficulty Paying Gas/Electric Bills: No Difficulty Paying for Meds: No Currently Unemployed: No Education: High School Diploma/GED Difficulty w/ Childcare or Family Care: No Spiritual care concerns: No Meds Home Medications and Allergies Home Medications ?Medication ?Instructions ?Recorded ?Confirmed ?Type No Home Medications 08/02/24 08/02/24 History Allergies Allergy/AdvReac Type Severity Reaction Status Date / Time No Known Allergies Allergy Verified 08/02/24 09:55 Vital Signs Vital Signs - 24 hr 08/02/24 11:00 08/02/24 12:00 08/02/24 14:00 Temperature Pulse Rate 86 84 79 Respiratory Rate 15 14 15 Blood Pressure 115/66 129/88 108/70 Pulse Oximetry 99 99 100 Oxygen Delivery 08/02/24 15:08 08/02/24 15:16 08/02/24 15:23 Temperature 97.9 F 98.0 F Pulse Rate 90 89 92 Respiratory Rate 14 13 14 Blood Pressure 114/66 118/74 118/74 Pulse Oximetry 100 100 100 Oxygen Delivery 08/02/24 15:25 08/02/24 15:26 08/02/24 16:25 Temperature 98.0 F 97.8 F Pulse Rate 92 86 Respiratory Rate 14 18 Blood Pressure 118/74 106/68 Pulse Oximetry 100 100 Oxygen Delivery Room Air 08/02/24 17:20 08/02/24 20:00 08/02/24 22:00 Temperature 97.3 F L 98.0 F Pulse Rate 125 H 80 Respiratory Rate 18 18 Blood Pressure 122/76 111/61 Pulse Oximetry 100 100 Oxygen Delivery Room Air 08/02/24 22:06 08/02/24 22:21 08/02/24 23:21 Temperature 97.7 F 97.8 F 98.3 F Pulse Rate 96 87 89 Respiratory Rate 18 18 18 Blood Pressure 107/63 118/67 104/57 L Pulse Oximetry 99 99 100 Oxygen Delivery 08/03/24 00:20 08/03/24 00:21 08/03/24 00:45 Temperature 98.0 F 98.0 F 97.9 F Pulse Rate 93 93 72 Respiratory Rate 18 18 18 Blood Pressure 90/48 L 90/48 L 96/52 L Pulse Oximetry 93 99 100 Oxygen Delivery 08/03/24 00:49 08/03/24 06:00 08/03/24 09:20 Temperature 97.9 F 97.7 F Pulse Rate 72 90 Respiratory Rate 18 18 Blood Pressure 96/55 L 102/54 L Pulse Oximetry 100 99 Oxygen Delivery Room Air Exam Const: General: cooperative, healthy appearing, comfortable and no acute distress Orientation/consciousness: oriented to person, oriented to place and oriented to time HENMT: Head: normal to inspection Ears: external ears normal Face/Nose/Sinus: Normal external nose present and normal facial exam Face and sinus: normal facial exam Eyes: General: appearance normal, both eyes and all related structures Neck: Neck: normal visual inspection, trachea midline and supple Resp: Auscultation: clear to auscultation bilaterally, no crackles, no rales, no rhonchi and no wheezes Cardio: Rate: regular rate Rhythm: regular rhythm Heart sounds: no click, no murmurs and no rubs GI: GI Palp: No abdominal tenderness, No Soft to palpation, No Tenderness to palpation present (GI) and No Palpable mass present Auscultation: normal bowel sounds Skin: General skin exam: normal color and no rashes or lesions noted Neuro: General: oriented to person, oriented to place and oriented to time Extrem: General: normal to inspection, no joint enlargement, no clubbing, cyanosis or edema, no pedal edema and no calf tenderness Psych: Appearance: grossly normal Mental Status: mental status grossly normal Speech and movement: Normal speech and movement present H&P: Results Labs Labs: Urine 08/02/24 Range/Units 11:57 Urine Color Yellow (Yellow) Urine Appearance Clear (Clear) Urine pH 5.0 (5.0-9.0) Ur Specific [place] 1.030 (1.001-1.035) Urine Protein Trace (Negative) mg/dL Urine Glucose (UA) Negative (Negative) mg/dL Assessment and Plan Assessment and plan (1) Vaginal bleeding: Code(s): N93.9 - Abnormal uterine and vaginal bleeding, unspecified Status: Acute Plan This patient is a 43-year-old female with fibroid uterus. She presented to the emergency department with very heavy vaginal bleeding. Patient is scheduled for hysterectomy. She was found have a hemoglobin of 7 with urgency department. Examination revealed heavy vaginal bleeding. She was started on pain meds, nausea medicine and IV estrogen. Her bleeding did improve with the 1st dose of estrogen but she had significant nausea. To combine Zofran and estrogen entered her repeat dose of estrogen. Stat labs were ordered. She received 2 units of blood. To continue to observe her. She does not tolerate oral contraceptive pills.
[2024-08-03 11:03] LABS: Basophils Percent Auto 0.2 % (0.2-1.2); Eosinophils Absolute Auto 0.1 K/mm3 (0-0.3); Eosinophils Percent Auto 0.6 % (0-4.4); Hematocrit 27.1 % (37.0-47.0); Hemoglobin 8.7 g/dL (12.0-15.0); Immature Granulocyte Absolute 0.03 K/mm3 (0.00-0.031); Immature Granulocyte Percent A 0.4 % (0-0.5); Lymphocytes Absolute Auto 2.44 K/mm3 (0.9-3.2); Lymphocytes Percent Auto 29.7 % (18.3-44.2); Mean Corpuscular HGB Conc 32.1 g/dl (32-36); Mean Corpuscular Hemoglobin 25.9 pg (26-34); Mean Corpuscular Volume 80.7 fl (80-100); Mean Platelet Volume 9.5 fl (7.4-10.4); Monocytes Absolute Auto 0.7 K/mm3 (0.1-0.6); Monocytes Percent Auto 8.9 % (2.6-8.5); Neutrophils Percent Auto 60.2 % (45.5-73.1); Platelet Count Result 534 k/mm3 (150-375); Red Blood Count 3.36 M/mm3 (4.2-5.4); Red Cell Distribution Width 14.3 % (11.5-14.5); White Blood Count 8.2 K/mm3 (4.5-10.0)
[2024-08-03 11:21] LABS: Alanine Aminotransferase 15 U/L (6-35); Albumin Level 3.7 g/dL (3.5-5.1); Alkaline Phosphatase 65 U/L (38-126); Anion Gap 8 mmol/L (4-12); Aspartate Amino Transferase 23 U/L (14-36); Bilirubin,Total 0.6 mg/dL (0.2-1.3); Blood Urea Nitrogen 10 mg/dL (7-17); Calcium 8.6 mg/dL (8.4-10.2); Carbon Dioxide 22 mmol/L (22-30); Chloride 106 mmol/L (98-107); Estimated CRCL calculation 71 ml/min; Estimated Glomerular Filt Rate > 60; Glucose 102 mg/dL (65-110); Potassium 3.9 mmol/L (3.4-5.0); Sodium 136 mmol/L (137-145); Total Protein 6.7 g/dL (6.3-8.2)
[2024-08-03] MEDS: ONDANSETRON INJ 4 MG/2 ML VIAL 8 MG IV PUSH ×2 (11:25→17:30)
[2024-08-03] MEDS: ESTROGENS, CONJUGATED 25 MG/5 ML VIAL IV PUSH (11:27)
--- NOTE | 2024-08-04 08:21 | P.PNOB_ITS ---
EQUIPMENT COORDINATOR - A/P Assessment and plan (1) Fibroid uterus: Code(s): D25.9 - Leiomyoma of uterus, unspecified Status: Acute (2) Dysfunctional uterine bleeding: Code(s): N93.8 - Other specified abnormal uterine and vaginal bleeding Status: Acute Assessment and Plan: - reports heavy bleeding starting 2 weeks ago - Hgb 7.2 on admission - s/p IV estrogen x2, patient did not tolerate well due to nausea - bleeding improved s/p estrogen, minimal this AM - KAYKAY scheduled for Tuesday 08/08 - discussed outpatient options for bleeding control including estrogen vs TXA - patient declines estrogen therapy due to intolerance - will send TXA rx to keep bleeding minimal until surgery - return precautions discussed Time Spent With Patient Time: Total time spent is greater than 50% in coordination of care (as documented) at patient's floor/unit and/or counseling patient: Time with patient: 15 - 25 minutes EQUIPMENT COORDINATOR- PN:Subj Post-Op Subjective Date/time seen: 08/04/24 08:21 Interval history: Doing well, bleeding vastly improved overnight No dizziness or lightheadedness Still nauseous after IV estrogen, does not want to continue as an outpatient Hysterectomy moved to Thursday with Dr. Shoemaker Review of Systems 2 Review of Systems: All systems reviewed & are unremarkable except as noted in HPI and below Exam 2 Const: General: comfortable and no acute distress Resp: Effort & Inspection: normal respiratory effort Extrem: General: normal to inspection Psych: Mental Status: mental status grossly normal EQUIPMENT COORDINATOR - PN: Obj Data Vital Signs Vital Signs: Vital Signs - 24 hr 08/03/24 09:20 08/03/24 14:00 08/03/24 20:00 Temperature 98.1 F Pulse Rate 75 Respiratory Rate 16 Blood Pressure 110/74 Pulse Oximetry 100 Oxygen Delivery Room Air Room Air 08/03/24 22:00 Temperature 97.6 F Pulse Rate 77 Respiratory Rate 18 Blood Pressure 104/65 Pulse Oximetry 99 Oxygen Delivery Intake/Output Intake/Output: Intake & Output 08/01/24 08/02/24 08/03/24 08/04/24 23:59 23:59 23:59 23:59 Intake Total 900 1034 Balance 900 1034 Meds/Results Medications: Active Medications Generic Name Dose Route Start Last Admin Trade Name Freq PRN Reason Stop Dose Admin Hydrocodone Bitart/Acetaminophen 1 tab 08/02/24 18:08 08/03/24 22:05 Hydrocodone/Acetaminophen (*Crx) 5-325 Mg Tablet PO 1 tab Q6H PRN Administration Pain Rated 4-6 Hydrocodone Bitart/Acetaminophen 2 tab 08/02/24 18:08 Hydrocodone/Acetaminophen (*Crx) 5-325 Mg Tablet PO Q6H PRN Pain Rated 7-10 Ondansetron HCl 8 mg 08/02/24 18:08 08/03/24 17:30 Ondansetron Inj 4 Mg/2 Ml Vial IV PUSH 8 mg Q6H PRN Administration nausea/vomiting Labs 08/03/24 10:51 08/03/24 10:51 Labs: Laboratory Results - last 24 hr 08/03/24 10:51 WBC 8.2 RBC 3.36 L Hgb 8.7 L Hct 27.1 L MCV 80.7 MCH 25.9 L MCHC 32.1 RDW 14.3 Plt Count 534 H MPV 9.5 Immature Gran % (Auto) 0.4 Neut % (Auto) 60.2 Lymph % (Auto) 29.7 Cloud % (Auto) 8.9 H Eos % (Auto) 0.6 Baso % (Auto) 0.2 Lymph # (Auto) 2.44 Cloud # (Auto) 0.7 H Eos # (Auto) 0.1 Baso # (Auto) 0.0 Abs Immat Gran (auto) 0.03 Absolute Neuts (auto) 5.0 Absolute Nucleated RBC 0.000 Nucleated RBC % 0.0 Sodium 136 L Potassium 3.9 Chloride 106 Carbon Dioxide 22 Anion Gap 8 BUN 10 Creatinine 0.86 Estim Creat Clear Calc 71 Estimated GFR > 60 Glucose 102 Calcium 8.6 Total Bilirubin 0.6 AST 23 ALT 15 Alkaline Phosphatase 65 Total Protein 6.7 Albumin 3.7
--- NOTE | 2024-08-04 08:27 | PM.DS ---
DS: Admitting Diagnosis Discharge Date 08/04/24 Admitting Diagnosis abnormal uterine bleeding due to fibroid uterus DS: Discharge Diagnosis Discharge Diagnosis (1) Fibroid uterus: Code(s): D25.9 - Leiomyoma of uterus, unspecified Status: Acute (2) Dysfunctional uterine bleeding: Code(s): N93.8 - Other specified abnormal uterine and vaginal bleeding Status: Acute DS: Summary Hospital Course Hospital Course: Patient was admitted on 08/02 for heavy vaginal bleeding that was persistent. She has a known history of fibroid uterus and was scheduled for total abdominal hysterectomy on 08/16. Her bleeding continued to worsen and on presentation to the ER, she was found to be anemic to Hgb 7.2. She was admitted for bleeding control and blood transfusion. Her Hgb improved to 8.7 after 2u pRBCs, and her bleeding improved after 2 doses of IV estrogen, however she reported severe nausea with estrogen administration. On HD#2, her bleeding was still improved and she was stable for discharge home. KAYKAY was rescheduled for 08/[address] Shoemaker due to heavy bleeding. Patient discharged home in stable condition. Time Spent with Patient Time attestation: Total time spent providing and/or coordinating discharge services: 15 min DS: Data Data Completed and Pending Labs on day of discharge: Labs from last 24 hours 08/03/24 10:51 WBC 8.2 RBC 3.36 L Hgb 8.7 L Hct 27.1 L MCV 80.7 MCH 25.9 L MCHC 32.1 RDW 14.3 Plt Count 534 H MPV 9.5 Immature Gran % (Auto) 0.4 Neut % (Auto) 60.2 Lymph % (Auto) 29.7 [place] % (Auto) 8.9 H Eos % (Auto) 0.6 Baso % (Auto) 0.2 Lymph # (Auto) 2.44 [place] # (Auto) 0.7 H Eos # (Auto) 0.1 Baso # (Auto) 0.0 Abs Immat Gran (auto) 0.03 Absolute Neuts (auto) 5.0 Absolute Nucleated RBC 0.000 Nucleated RBC % 0.0 Sodium 136 L Potassium 3.9 Chloride 106 Carbon Dioxide 22 Anion Gap 8 BUN 10 Creatinine 0.86 Estim Creat Clear Calc 71 Estimated GFR > 60 Glucose 102 Calcium 8.6 Total Bilirubin 0.6 AST 23 ALT 15 Alkaline Phosphatase 65 Total Protein 6.7 Albumin 3.7 Discharge Plan Discharge Attending physician on discharge: Calderon Myles Discharging Clinician: Calderon Myles Patient Disposition: Home Activity: may shower and as tolerated Diet: as tolerated Patient Instructions: Antibiotic Form Patient Language: Greenlandic Stand Alone Forms: General Discharge Information Follow-up/Referrals: Linwood Shoemaker MD [Physician] - Keep Reg. Scheduled Appt. Discharge Medications: New tranexamic acid 650 mg tablet 1,300 mg PO Q8H 5 Days Qty: 30 0RF No Action No Home Medications Date of admission: 08/02/24 15:48 Primary Care Provider: Asad,Alisha Noble Admitting Provider: Linwood Shoemaker Attending physician on admission: Linwood Shoemaker Condition: Stable
== END 2024-08-04 09:47 | disposition home or self-care (01) ==
LOC: ANHED 09:37 → ANH2MED 15:36
PROVIDERS: Admitting Provider Obstetrics & Gynecology; Emergency Provider Nurse Practitioner Family; PCP Nurse Practitioner; Visit Provider Obstetrics & Gynecology
DX: D25.9 Leiomyoma of uterus, unspecified (principal); N93.8 Other specified abnormal uterine and vaginal bleeding; D64.9 Anemia, unspecified
CPT/HCPCS: 36415; 36430; 80053; 81001; 81025; 85025; 85610; 85730; 86850; 86900; 86901; 86923; 96361; 96374; 96375; 96376; 99285; A9270; G0378; J1410; J1885; J2405; J7050; P9016

== ENCOUNTER 2024-08-08 07:30 | Inpatient (IN) | payer BC, SELFPAY ==
--- NOTE | 2024-08-05 08:30 | PC.NURSE ---
Report to the Outpatient Waiting Room, entrance under the green pavilion located off [facility], at time _8:30 AM on date __08/08/24 . Planned Procedure Time: _10:30 AM .? Time changes happen often and if your time is changed the preop area will call you the afternoon before. - You and your visitor will be asked to self-screen and do not enter if you have any COVID symptoms. Please call surgeon if you need to reschedule. - A mask is optional within the hospital at this time. Patients may have clear liquids (water, carbonated beverages, clear teas, apple juice) until 3 hours prior to surgery ( 7:30 AM) with a maximum of 20 ounces. - No food from midnight until time of surgery and no smoking, or chewing tobacco (or any form of nicotine). No chewing gum, candy or mints. Take only the following medications with a SIP of water on the morning of surgery: ____NONE DO NOT STOP ANY OF YOUR OTHER PRESCRIPTION MEDICATIONS PRIOR TO SURGERY EXCEPT THE FOLLOWING Hold all vitamins and supplements for 3 days per anesthesiologist. Medications to discontinue per physician NONE Please no make-up, nail citizen of [place], hairspray, perfume, deodorant, or body powder the day of surgery.? No jewelry (including any body piercings) or valuables the day of surgery, leave them at home.? Please take a shower or bath the night before, or the morning of, surgery with an antibacterial soap.? Wear comfortable, loose fitting clothing.? Children are encouraged to wear pajamas. - Jewelry must be removed prior to entering the operating room.? Rings and piercings that are not removed may be cut off. - The hospital will not accept responsibility for valuables.? - Please leave all valuables, including medications, at home the day of surgery. If you are going home after surgery, a licensed truck driver must drive you home.? - NO public transportation without another adult if you receive anesthesia. - We recommend that an adult stay with you for 24 hours following discharge. - We also recommend that you do not drive, make important decision, drink alcoholic beverages, or take any drugs that were not prescribed by your health care provider for at least 24 hours after your discharge time. For Pediatric surgeries, we recommend two adults accompany the child home. Follow any additional instructions given to you from your surgeon. Telephone instructions given to __PATIENT and asked if any additional questions and then verbalized understanding. Patient advised to call surgeon office or pre surgery nurse liaison [phone] if any additional questions.
[2024-08-05 08:37] VITALS: BMI 31.1
--- NOTE | 2024-08-07 08:46 | P.PNAN_ITS ---
Anes - Eval Pre Procedure Procedure: Operation Date: 08/08/24 10:30 Proposed Procedures p Total Abdominal Hysterectomy with Bilateral Salpingectomy - Linwood Shoemaker MD Date/Time: 08/07/24 08:46 Pre Op Diagnosis: Intramural, submucous subserous Leiomyoma Patient Data Age: 43 Gender: F Height: 1.57 m Weight: 77.15 kg Allergies Allergy/AdvReac Type Severity Reaction Status Date / Time No Known Allergies Allergy Verified 08/05/24 08:28 Home Medications ?Medication ?Instructions ?Recorded ?Confirmed ?Type tranexamic acid 650 mg tablet 1,300 mg (2 x 650 mg) PO Q8H 5 08/04/24 08/05/24 Rx days #30 tabs Patient hx anesthesia problems: post op nausea/vomiting Family hx anesthesia problems: none Results Review: All pre-operative results and documents have been reviewed as part of the pre- operative evaluation. [facility] Past Medical History Medical History (Updated 08/07/24 @ 08:47 by Melinda Hutchinson CRNA) Abnormal vaginal bleeding Anemia Dysfunctional uterine bleeding Vaginal bleeding Fibroid uterus Social History Social History Smoking status: Never smoker Alcohol intake: never Substance use: never Do You Feel Safe in your Home?: Yes Lack of Transportation: No Lack of Food: Never True Current Housing: I Have Housing Concerned About Future Housing: No Difficulty Paying Gas/Electric Bills: No Difficulty Paying for Meds: No Currently Unemployed: No Education: High School Diploma/GED Difficulty w/ Childcare or Family Care: No Living arrangements: with family Spiritual care concerns: No Exam Day of Procedure 08/07/24 08:46
[2024-08-08] VITALS (14 sets, daily range): BP systolic 92–136; BP diastolic 55–80; PULSE 74–103; RESP 10–16; TEMP 36.4–37.1; O2SAT 94–100; BMI 31.1
--- OUTSIDE RECORDS SUMMARY | 2024-08-08 00:48 | XMS_ITS | Clinical Summary ---
Author Organization [facility] Address [address] [place] [address] Phone Care Team Providers Care Assembler Handbags Name Role Phone Provider, None Primary Care [...] patient's age to complete this topic Insurance [facility] Care Teams Assembler Handbags Relationship Specialty Start Date End Date Provider, None [place] PCP - General 12/05/19
--- OUTSIDE RECORDS SUMMARY | 2024-08-08 00:48 | XMS_ITS | Clinical Summary ---
Author Organization [facility] Address [address] [place] [address] Care Team Providers Care Security Systems Engineer Name Role Phone Unavailable Primary Care Provider Unavailabl e Source Comments [facility],non-owned Affiliates and Associated Physician Practices is amultiple site organization consisting of ambulatory clinics and hospital sitesin [place], [place], [place] and [place]. This disclosure is being madepursuant to the Care Everywhere program and may not contain all information available regarding this patient. Last updated 17.[facility] Allergies No known active allergies Medications * Be aware that medications may not be up to date on this document. Alwaysverify current medications with the patient. 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 DRILL OPERATOR Gender Identity Not on file Sexual Orientation Not on file Last Filed Vital Signs Vital Sign Reading Time Taken Comments Blood Pressure 122/80 12/28/2018 9:41 AM ROCK DRILL OPERATOR Pulse 99 12/28/2018 9:41 AM ROCK DRILL OPERATOR Temperature 36.5 C (97.7 F) 12/28/2018 9:41 AM ROCK DRILL OPERATOR Respiratory Rate 14 01/06/2018 3:11 PM ROCK DRILL OPERATOR Oxygen Saturation 98% 01/06/2018 3:11 PM ROCK DRILL OPERATOR Inhaled Oxygen Concentration - - Weight 68 kg (150 lb) 12/28/2018 9:41 AM ROCK DRILL OPERATOR Height 160 cm (5' 3) 12/28/2018 9:41 AM ROCK DRILL OPERATOR Body Mass Index 26.57 12/28/2018 9:41 AM ROCK DRILL OPERATOR Plan of Treatment Health Maintenance Due Date [...] Name:BREONNA JOHNSON Payer ID:[id number] (NAIC) Type:PPO Address: [facility] [address] [place] [id number]
--- OUTSIDE RECORDS SUMMARY | 2024-08-08 00:48 | XMS_ITS | Clinical Summary ---
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
--- OUTSIDE RECORDS SUMMARY | 2024-08-08 00:48 | XMS_ITS | Data Portability ---
Author Organization [facility] [place] Address [address] [place] [address] Assessment Encounter Date Assessment Date Assessment LastModified by Organization Details LastModified Time 2023 2023 Annual gynecological exam performed. Patient will come back in a year unless there are new symptoms. [email or web address] Not available 2023 10:25:34 Plan of Treatment Reminders Order Date Submit Date Provider Last Modified By Organization Details Last Modified Time Details Appointments SURG Total Lap Hyst 2024 10:30A Remigio SHOEMAKER MD Not available Not available Not available SURG POST OP 2024 11:15A Remigio SHOEMAKER MD Not available Not available Not available WELL WOMAN-EST 2024 08:15A NARESH Stacy Not available Not available Not available Lab dhea-sulf ate, serum 2024 025 [facility] (Lab), [address], [place], [address], 07/17/2024 15:23:39 hormone panel, serum or plasma 2024 025 [facility] (Lab), [address], [place], [address], 07/17/2024 15:23:40 progester one, serum 2024 025 [facility] (Lab), [address], [place], [address], 07/17/2024 15:23:39 prolactin , serum 2024 025 [facility] (Lab), [address], [place], [address], 07/17/2024 15:23:40 shbg (sex hormone-b inding globulin) , serum 2024 025 [facility] (Lab), [address], [place], [address], 07/17/2024 15:23:41 TSH, serum or plasma 2024 025 [facility] (Lab), [address], [place], [address], 07/17/2024 15:23:41 testoster one free/test osterone total, ratio, serum 2024 025 [facility] (Lab), [address], [place], [address], 07/17/2024 15:23:42 CBC w/ diff 2024 025 [facility] (Lab), [address], [place], [address], 07/18/2024 04:04:47 test, urine 2024 025 [facility] [place], [address], [place], [address], 07/11/2024 14:09:09 Referral None recorded. Procedures None recorded. Surgeries total abdominal hysterect marcial with salpingec luzmaria (SURG) 2024 025 [email or web address] [facility], [address], [place], [address], 08/03/2024 16:29:32 Imaging US, pelvis 2024 025 [email or web address] [place], [address], [place], [address], 07/12/2024 21:37:50 US, transvagi nal 2024 025 [email or web address] [place] [facility] [address], [place], [address], 07/12/2024 21:37:50 MAMMO, screening , digital, bilateral 2023 024 [facility], [address], [place], [address], 09/30/2023 12:27:58 Medication Orders None recorded. Patient [...] CASE REPOR T: Cytol ogy Gynec ologi michael Repor t Case: [id number] Autho rironan g Provi michael: Alisha Anderson, JEFFREY Colle cted: 09/23 1606 Order ing Locat ion: [place] Patho logy Recei man: 09/24 0049 First Scree n: Deanna Spangler, CT Speci men: Scree nette Pap - Image d, Cervi x STATE MENT OF ADEQU ACY: Satis facto ry for evalu ation Trans forma tion zone compo nent prese nt ----- ----- ----- ----- ----- ----- ----- ----- ----- ----- ----- ----- ----- ----- ----- ----- ----- ---- FINAL DIAGN OSIS: Negat sofi for Intra epith elial Lespaola n or Kitty garduno (NIL) . Funga l organ isms morph ologi tanisha consi stent with Susana da spp. Elect rorojorge garcia valeri d by Deanna Spangler ay, CT on 024 at 8:56 AM ----- [...] Thinp rep Imagi ng Syste m. CLINI MICHAEL INFOR MATIO N: Menst rual Statu s: LMP (if appli cable ): 2023 Clini michael Histo ry/Pr eviou s Pap: Type of Neopl beatrice (if appli cable ): Signi fican t Clini michael Findi ngs: Other Histo ry: Hormo dario [...] ng do not corre late with physi michael and/o r histo rical findi ngs, furth er inves tigat ion is recom maryanne d, as moreliai tanisha zepeda nted. Not Available [facility] (Lab) [address] [facility], [place], [address], 10/01/2023 10:00:20 07/12/19 25 07/11/2024 DHEA SULFA TE DHEA-sulfate 110 ug/dL Femal e Range s Age(y ) Range (ug/d L) 10-15 34-28 0 15-20 65-36 8 20-25 148-4 07 25-35 99-34 0 35-45 61-33 7 45-55 35-25 6 55-65 19-20 5 65-75 9-246 > 75 12-15 4 Not Available [facility] (Lab) [address] [facility], [place], [address], 07/17/2024 15:23:39 07/12/19 25 07/11/2024 PROGE STERO NE progesterone 0.06 NG/mL This assay was perfo rmed using [employer] ratio n reage nts and test kits. Value s obtai sarah with other assay metho ds or kits canno t be used inter rodriguez eably . Femal e Proge stero ne Range s: Folli cular phase 0.06- 0.89 ng/mL Ovula tion phase 0.12- 12.00 ng/mL Lutea l phase 1.83- 23.90 ng/mL Postm enopa usal <0.05 -0.13 ng/mL Healt hy Pregn ant Women 1st Trime ster 11.0- 44.30 2nd Trime ster 25.40 -83.3 0 3rd Trime ster 58.70 -214. 00 Not Available [facility] (Lab) [address], [place], [address], 07/17/2024 15:23:39 07/12/19 25 07/11/2024 PROLA CTIN prolactin, total 21.70 NG/mL 4.79-2 3.30 This assay was perfo rmed using [employer] ratio n reage nts and test kits. Value s obtai sarah with other assay metho ds or kits canno t be used inter [facility] . Not Available [facility] (Lab) [address] [place], [address], 07/17/2024 15:23:40 07/12/19 25 07/11/2024 FSH, LH, ESTRA DIOL estradiol 295.0 pg/mL This assay was perfo rmed using [employer] ratio n reage nts and test kits. Value s obtai sarah with other assay metho ds or kits canno t be used inter [facility] . Femal e Estra diol Range s: Folli cular phase 12.4- 233 pg/mL Ovula tion phase 41.0- 398 pg/mL Lutea l phase 22.3- 341 pg/mL Postm enopa usal <5-13 8 pg/mL Healt hy Pregn ant Women 1st Trime ster 154-3 243 pg/mL 2nd Trime ster 1561- 85202 pg/mL 3rd Trime ster 8525- >3000 0 pg/mL Not Available [facility] (Lab) [address] [place], [address], 07/17/2024 15:23:40 07/12/19 25 07/11/2024 FSH, LH, ESTRA DIOL FSH 6.0 mIU/m L This assay was perfo rmed using [employer] ratio n reage nts and test kits. Value s obtai sarah with other assay metho ds or kits canno t be used inter [facility] . Femal es Folli cular : 3.5-1 2.5 mIU/m L Ovula tion: 4.7-2 1.5 mIU/m L Lutea l: 1.7-7 .7 mIU/m L Postm enopa use: 25.8- 134.8 mIU/m L Not Available [facility] (Lab) [address] [place], [address], 07/17/2024 15:23:40 07/12/19 25 07/11/2024 FSH, LH, ESTRA DIOL LH 5.6 mIU/m L This assay was perfo rmed using [employer] ratio n reage nts and test kits. Value s obtai sarah with other assay metho ds or kits canno t be used inter rodriguez eably . Femal es Mid-F ollic ular: 2.4-1 2.6 mIU/m L Mid-C ycle: 14.0- 95.6 mIU/m L Mid-L uteal : 1.0-1 1.4 mIU/m L Postm enopa use: 7.7-5 8.5 mIU/m L Not Available [facility] (Lab) [address] [facility], [place], [address], 07/17/2024 15:23:40 07/12/19 25 07/11/2024 TSH, REFLE X FREE T4 TSH 0.34 uIU/m L 0.30-5 .33 Not Available [facility] (Lab) [address] [place], [address], 07/17/2024 15:23:41 07/12/19 25 07/11/2024 HUMAN SEX HORMO NE DAYSI NG GLOBU BRIANNA sex hormone binding globulin 226.1 nmole s/L 18.2-1 35.5 high Not Available [facility] (Lab) [address] [facility], [place], [address], 07/17/2024 15:23:41 07/12/19 25 07/11/2024 CBC W/DIF F WBC 5.5 10'3/ uL 3.5-10 .5 Not Available [facility] (Lab) [address] [place], [address], 07/17/2024 15:23:41 07/12/19 25 07/11/2024 CBC W/DIF F RBC 3.45 10'6/ uL (based on docume nted legal sex) 3.80-5 .20 low Not Available [facility] (Lab) [address] [place], [address], 07/17/2024 15:23:41 07/12/19 25 07/11/2024 CBC W/DIF F HGB 10.0 g/dL (based on docume nted legal sex) 11.6-1 5.4 low Not Available [facility] (Lab) [address] [facility], [place], [address], 07/17/2024 15:23:41 07/12/19 25 07/11/2024 CBC W/DIF F HCT 32.8 % (based on docume nted legal sex) 34.0-4 5.0 low Not Available [facility] (Lab) [address] [facility], [place], [address], 07/17/2024 15:23:41 07/12/19 25 07/11/2024 CBC W/DIF F MCV 95.1 fL 80.0-9 9.0 Not Available [facility] (Lab) [address] [facility], [place], [address], 07/17/2024 15:23:41 07/12/19 25 07/11/2024 CBC W/DIF F MCH 29.0 pg 27.0-3 4.0 Not Available [facility] (Lab) [address] [facility], [place], [address], 07/17/2024 15:23:41 07/12/19 25 07/11/2024 CBC W/DIF F MCHC 30.5 g/dL 32.0-3 5.5 low Not Available [facility] (Lab) [address] [facility], [place], [address], 07/17/2024 15:23:41 07/12/19 25 07/11/2024 CBC W/DIF F RDW 12.5 % 11.0-1 5.0 Not Available [facility] (Lab) [address] [facility], [place], [address], 07/17/2024 15:23:41 07/12/19 25 07/11/2024 CBC W/DIF F plt 477 10'3/ uL 150-40 0 high Not Available [facility] (Lab) [address] [facility], [place], [address], 07/17/2024 15:23:41 07/12/19 25 07/11/2024 CBC W/DIF F MPV 10.7 fL 8.8-12 .1 Not Available [facility] (Lab) [address] [facility], [place], [address], 07/17/2024 15:23:41 07/12/19 25 07/11/2024 CBC W/DIF F NRBC's 0.0 % 0.0 Not Available [facility] (Lab) [address] [facility], [place], [address], 07/17/2024 15:23:41 07/12/19 25 07/11/2024 CBC W/DIF F absolute NRBCs 0.0 10'3/ uL no refere nce range establ ished Not Available [facility] (Lab) [address] [facility], [place], [address], 07/17/2024 15:23:41 07/12/19 25 07/11/2024 CBC W/DIF F neutrophils 58.5 % 34.0-7 3.0 Not Available [facility] (Lab) [address] [facility], [place], [address], 07/17/2024 15:23:41 07/12/19 25 07/11/2024 CBC W/DIF F lymphocytes 26.6 % 15.0-5 0.0 Not Available [facility] (Lab) [address] [facility], [place], [address], 07/17/2024 15:23:41 07/12/19 25 07/11/2024 CBC W/DIF F monocytes 10.4 % 1.0-15 .0 Not Available [facility] (Lab) [address] [place], [address], 07/17/2024 15:23:41 07/12/19 25 07/11/2024 CBC W/DIF F eosinophils 3.8 % 0.0-8. 0 Not Available [facility] (Lab) [address] [facility], [place], [address], 07/17/2024 15:23:41 07/12/19 25 07/11/2024 CBC W/DIF F basophils 0.5 % 0.0-2. 0 Not Available [facility] (Lab) [address] [facility], [place], [address], 07/17/2024 15:23:41 07/12/19 25 07/11/2024 CBC W/DIF F immature granulocytes 0.2 % no define d refere nce range Immat ure Granu locyt es (IG) repre sents autom ated enume ratio n of Metam yeloc ytes, Myelo cytes and Promy elocy hugo when IG is < 5%. Blast s are not inclu ded in IG and repor gilberto separ ately if prese nt. Not Available [facility] (Lab) [address] [facility], [place], [address], 07/17/2024 15:23:41 07/12/19 25 07/11/2024 CBC W/DIF F absolute neutrophils 3.2 10'3/ uL 1.5-8. 0 Not Available [facility] (Lab) [address] [facility], [place], [address], 07/17/2024 15:23:41 07/12/19 25 07/11/2024 CBC W/DIF F absolute lymphocytes 1.5 10'3/ uL 1.0-4. 0 Not Available [facility] (Lab) [address] [facility], [place], [address], 07/17/2024 15:23:41 07/12/19 25 07/11/2024 CBC W/DIF F absolute monocytes 0.6 10'3/ uL 0.2-1. 0 Not Available [facility] ([facility]) [address] [facility], [place], [address], 07/17/2024 15:23:41 07/12/19 25 07/11/2024 CBC W/DIF F absolute eosinophils 0.2 10'3/ uL 0.0-0. 6 Not Available [facility] (Lab) [address] [facility], [place], [address], 07/17/2024 15:23:41 07/12/19 25 07/11/2024 CBC W/DIF F absolute basophils 0.0 10'3/ uL 0.0-0. 3 Not Available [facility] (Lab) [address] [facility], [place], [address], 07/17/2024 15:23:41 07/12/1907/11/2024 CBC W/DIF F absolute immature granulocytes 0.0 10'3/ uL 0.00-0 .10 Refer ence range s for nonbi nary/ inter sex or unspe cifie d gende r patie nts have not been estab lishe d. Radha e refer [facility] table for range s estab lishe d for cisge nder patie nts and evalu ate in the clini michael ailyn xt of the indiv idual patie nt: https ://la bhjan book. nm.or g/gen derx Not Available [facility] (Lab) [address] [facility], [place], [address], 07/17/2024 15:23:41 07/12/1907/11/2024 TESTO STERO NE, FREE( DIALY SIS) AND TOTAL (LC/M S/MS) testosterone , total 28 NG/dL 2-45 For addit ional infor radha dumont e refer to http: //jayesh scott n.que stdia gnost ics.c om/fa q/ Total Testo stero neLCM SMSFA Q165 (This link is being provi ded for infor eric nal/ educa tyson l purpo ses only. ) This test was devel oped and its russ tical perfo rmanc e terry cteri stics have been deter mined by [facility] saroj s [place], [place]. It has not been clear ed or appro man by the U.S. Food and Drug Admin istra tion. This assay has been valid ated pursu ant to the CLIA regul ation s and is used for clini michael purpo ses. Not Available [facility] (Lab) [address] [facility], [place], [address], 07/17/2024 15:23:42 07/12/19 25 07/11/2024 TESTO STERO NE, FREE( DIALY SIS) AND TOTAL (LC/M S/MS) testosterone , free 0.8 pg/mL 0.1-6. 4 This test was devel oped and its russ tical perfo rmanc e terry cteri stics have been deter mined by [facility] saroj salvador [place], [place]. It has not been clear ed or appro man by the U.S. Food and Drug Admin istra tion. This assay has been valid ated pursu ant to the CLIA regul ation s and is used for clini michael purpo ses. Perfo rming Organ izati on Infor matio n: Site ID: AMD Name: Lobo kyle modesto Erik [facility] Addre ss: [id number] [place], [place] Direc tor: Oral Garcia MD PhD Not Available [facility] (Lab) [address] [facility], [place], [address], 07/17/2024 15:23:42 07/12/1907/11/2024 pregn law test, urine HCG negati ve Not Available [facility] [address], [place], [address], 07/11/2024 14:09:02 07/16/19 25 07/15/2024 SURGI MICHAEL PATHO LOGY surgical pathology SEE RESULT S BELOW CASE REPOR T: Surgi michael Patho logy Repor t Case: [id number] Autho roxana ramirez Provi michael: Jennifer Shoemaker MD Colle cted: 07/15 1507 Order ing Locat ion: [place] Patho loggabriel Recei man: 07/16 0042 Patho logis t: Abdulaziz Ahmadi MD Speci men: Radha simmons, EMB ----- ----- ----- ----- ----- ----- ----- ----- ----- ----- ----- ----- ----- ----- ----- ----- ----- ---- FINAL DIAGN OSIS: Radha simmons, biops y: -Rare minut e super ficia l strip s of inact sofi radha simmons. -No evide nce of hyper plasi a or maljaqueline garduno . -Frag ments of babar ramon al mucos aBay trammell d by Abdulaziz Ahmadi MD on 2024 at 1001 CDT ----- ----- ----- ----- ----- ----- ----- ----- ----- ----- ----- ----- ----- ----- ----- ----- ----- ---- CLINI MICHAEL INFOR MATIO N: ABNOR MAL UTERI NE BLEED ING MICRO SCOPI C DESCR IPTIO N: A micro scopi c exami natio n was perfo rmed. Digit al imagi ng was used in the diagn ostic asses sment of this case. GROSS DESCR IPTIO N: A. Radha simmons. The speci men is label ed with the patie nt's name and demog olman hurst only. Recei man in forma brianna is a 5.1 x 2.0 x 0.3 cm ag[address] gate of dark red tissu e. The entir e specalf herzog is submi tted in casse ttes A1-A4 . Gross ed by Briseida Blanca on Not Available [facility] (Lab) [address], [place], [address], 07/19/2024 11:05:10 09/30/19 24 09/30/2023 MAMMO , scree nette, digit al, bilat eral No observ ation record ed. [facility] [address], [place], [address], 10/01/2023 10:12:56 07/13/19 25 07/12/2024 US, pelvi s No observ ation record ed. [email or web address] [place] [address], [place], [address], 07/12/2024 15:17:52 07/13/19 25 07/12/2024 US, trans vagin al No observ ation record ed. [email or web address] [place] [address], [place], [address], 07/12/2024 15:18:00 07/13/19 25 07/12/2024 US, pelvi s No observ ation record ed. [email or web address] [facility] [address], [place], [address], 07/13/2024 15:18:59 Result Notes None recorded. Procedures Surgical History Date Name Laterality Status Provider Name and Address Organization Details Recorded Time 07/16/19 25 Endometrial Biopsy completed Linwood Shoemaker MD [address], [place], [address], [place] [facility] 07/15/2024 17:11:55 09/30/19 24 Date of Last Mammogram completed Rut Siegel [facility] 07/11/2024 10:31:52 09/24/19 24 Date of Last Pap Smear completed Parris Duenas [facility] 07/15/2024 12:33:02 11/09/19 08 section completed [facility] 07/11/2024 10:34:03 08/26/19 06 Caesarean Section completed [facility] 2023 15:18:20 Imaging Results None recorded. Procedure Notes None recorded. Medical Equipment None Reported. Allergies No known drug allergies Medications Name Sig Start Date Stop Date Status Note LastModified by Organization Details LastModified Time tranexamic acid 650 mg tablet 1300 MG (2 X 650 MG) ORALLY EVERY 8 HOURS FOR 5 DAYS active Not Available Not Available No t Available Vitals Date Recorded Body height Body mass index (BMI) Body weight Systolic blood pressure Diastolic blood pressure Provider Name and Address Organization Details Last Updated DateTime 07/11/2024 157.48 cm 32.2 kg/m2 15079.98 g 125 mm[Hg] 84 mm[Hg] [facility] 5 10:30:19 Date Recorded Body height Body mass index (BMI) Body weight Systolic blood pressure Diastolic blood pressure Provider Name and Address Organization Details Last Updated DateTime 07/15/2024 157.48 cm 31.6 kg/m2 72441.48 g 131 mm[Hg] 87 mm[Hg] Parris Duenas [facility] 5 12:32:20 Date Recorded Body height Body mass index (BMI) Body weight Systolic blood pressure Diastolic blood pressure Provider Name and Address Organization Details Last Updated DateTime 07/21/2024 157.48 cm 32 kg/m2 38903.66 g 108 mm[Hg] 77 mm[Hg] RICCI Rich [facility] 5 10:14:17 Date Recorded Body height Body mass index (BMI) Body weight Systolic blood pressure Diastolic blood pressure Provider Name and Address Organization Details Last Updated DateTime 2023 157.48 cm 29.8 kg/m2 06256.56 g 137 mm[Hg] 86 mm[Hg] Ivory Maria A [facility] 4 15:17:34 Social History Question Answer Notes LastModified by Organizat ion Details LastModified Time Tobacco Smoking Status Never Smoker Beth Quigley [facility] 06/18/2021 10:07:09 How Many Years Have [...] Or The Highest Degree You Have Received? [id number] Information not available 06/18/2021 Are There Any [...] is your level of alcohol consumption? None [email or web address] Information not available 2023 Are you able to walk? YESWOREST Information not available 06/14/2021 Are you able to care for yourself? 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 No Information not available 06/18/2021 What is your exercise level? Occasional Information not available 06/14/2021 Mental Status Question Answer Note LastModified by Organization D etails LastModified Time Do you feel stressed (tense, restless, nervous, or anxious, or unable to sleep at night)? [id number] Information not available 06/18/2021 Family History Relationship Description Onset Age of this Age Resolved Age Notes LastModified by Organization Details LastModified Time Mother Malignant tumor of breast Not available 2021 12:16:29 Medical History Condition Response Allergies (Food, seasonal, environmental ) N Other N Blood Transfusion N Drug/Latex Allergies/Reactions N Breast Cancer N Dermatologic Disorders N Lung Disease N Defects or Inherited Disease N Breast Problem N Gestational Diabetes N Hematologic disorders N Anesthesia Complications N History of STI N Deep Vein Thrombosis N Polycystic ovary syndrome N Anxiety Disorder N Autoimmune disease N Arthritis N Infertility N Polyps N Acid Reflux (GERD) N History of abnormal pap N Cancer N Stroke N Varicosities N Neurologic/Epilepsy N Endometriosis N High Cholesterol N Headaches N Fibromyalgia N Kidney Disease N Heart Problems N Kidney or Bladder Problems N Thyroid Problems N GI Problems N Eating Disorder [...] SNOMED-CT Code Diagnosis ICD10 Code Diagnosis Note [id number] NARESH Gamble [facility] [address] [address] 06/18/2021 09:53:55 06/18/2021 10:30:25 Family history of breast cancer 859011773 Z80.3 Gynecologi c examination 75174730 Z01.419 Suggested Calcium with Vitamin D 1200-1500m g daily. Patient advised to get an annual flu shot in the fall and she could obtain at [facility] or [facility] clinic. Also to obtain TDap vaccinatio n [...] WWE. No gynecologi c issues today.Last pap 2015, normal. No hx of abnormal paps.Pap done [...] or sooner if needed [id number] NARESH Gamble [facility] [address],[facility] [place] [address] 2023 15:03:25 2023 15:56:13 Gynecologic examination 21565085 Z01.419 Z11.51 WWEpap updateddec lined STI screenmamm ogram order givenencou raged [...] answered. Screening for malignant neoplasm of breast 434838778 Z12.39 [id number] NARESH Gamble [facility] [address],[place] [address] 07/11/2024 09:39:34 07/12/2024 15:09:53 Abnormal uterine bleeding [id number] 9100 N93.9 UPT (-)Discuss ed recent irregular [...] All questions answered to patient satisfacti on. [id number] Linwood Shoemaker MD [facility] [address] [address] 07/12/2024 14:22:02 07/12/2024 15:05:52 Menometrorrhagia 558431410 N92.1 [id number] Linwood Shoemaker MD [facility] [address] [address] 07/15/2024 12:23:44 07/18/2024 07:30:59 Endometrium thickened 050636870 R93.89 endometria l biopsy was performed without complicati ons. She tolerated it well. [id number] Linwood Shoemaker MD [facility] [address] [address] 07/21/2024 09:38:57 07/21/2024 10:51:28 Menometrorrhagia 262719869 N92.1 Intramural leiomyoma of uterus 18937194 D25.1 D25.0 D25.2 This patient is a [...] Recorded Advance Directives Directive None Recorded Payers Insurance Date Sequence Insurance Name Policy Number Policy Goodwin Covered Member ID Goodwin Member ID Guarantor Name 08/05/2024 1 [facility] [id number] Nuha Johnson [id number] Nuha Johnson Notes Date Note Type Note Provider Name and Address Organization Details Recorded Time 4 text/html Annual GYNReported bypatient.Menstrual cycle:Normal menses Urinary [...] nilm, HPV (-)mammogram last 2021 NARESH Gamble [address], [place], [address], [facility] 2023 15:48:55 5 text/html 43yo [id number] for evaluation of recent irregular periodhistorically has been having monthly periods, lasting 5 days, moderate to light flowLMP started 06/20/2024 and still continues. She is changing her pad every 4-5 hours at most.BC - partner with vasectomylast pap 09/2023 : nilm, HPV (-) NARESH Gamble [address], [place], [address], [facility] 07/12/2024 13:45:02 5 text/html this patient is a 43-year-old female presents for endometrial biopsy. The procedure was explained to the patient in detail. She understands the procedure. She understands the risks, benefits, and alternatives. She has completed the informed consent process and is ready to proceed. Linwood Shoemaker MD [address], [place], [address], [facility] 07/15/2024 17:12:40 5 text/html This patient [...] hemorrhage and infection. Linwood Shoemaker MD [address], [place], [address], [facility] 07/21/2024 10:45:45 OBGyn Episode Ob Episode Information Episode Created Date Number of Fetuses Patient Bloodtype Patient rh Status Prepregnancy Weight lbs Domestic Partner Domestic Partner Phone Father Name Database Engineer Status 06/15/19 22 1 CLOSED Fetus Data First Name Last Name Admitted to NICU Weight (g) Sex Living Outcome Pediatric Complications Fetus ID Race Codes Race Delivery Type Full Term [id number] Primary Marty Calculation Initial Marty Date Initial [...] Domestic Partner Domestic Partner Phone Father Name Database Engineer Status 06/15/19 22 1 CLOSED Fetus Data First Name Last Name Admitted to NICU Weight (g) Sex Living Outcome Pediatric Complications Fetus ID Race Codes Race Delivery Type Full Term [id number] Repeat Marty Calculation Initial Marty Date Initial [...]
--- OUTSIDE RECORDS SUMMARY | 2024-08-08 00:48 | XMS_ITS | Encounter Summary ---
Author Organization [facility] Address [address] [place] [address] Care Team Providers Care Finance Specialist Name Role Phone Unavailable Primary Care Provider Unavailabl e Encounter Details Date Type Department Care Team (Late st Contact Info) Description 11/05/2007 Outpatient Historical HIS PATIENT [place], [place] 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 Gender Identity Not on file Sexual Orientation [...] AM CDT) HISTORY CHECK No Historical ABO/Rh [facility] SPECIMEN LIFE 3 days from drawdate [facility] ABO/RH TYPE O Positive [facility] ANTIBODY SCREEN Negative [facility] Blood specimen (specimen) 11/08/2007 10:36 AM CDT us Kun Mccabe MD BLOOD BANK ORDERABLES Edite d Performing Organization Address City/[facility] Co de Phone Number INTERFACE SYSTEM Refer to clinic/hospital department [facility] CLIA# [id number] [address] [place] [address] * (ABNORMAL) URINALYSIS (11/08/2007 10:36 AM CDT) SPECIFIC GRAVITY UA 1.018 1.001 - 1.035 [facility] GLUCOSE UA Negative Negative [facility] BLOOD UA Negative Negative [facility] COLOR UA Yellow [facility] NITRITE UA Negative Negative [facility] BACTERIA UA 1+(A) None Seen /HPF [facility] UROBILINOGEN UA <1 <=1 mg/dL [facility] PH UA 6.0 5.0 - 8.0 [facility] WBC UA 18(H) 0 - 5 /HPF [facility] KETONES UA Negative Negative [facility] CLARITY UA Slt. Cloudy(A) Clear [facility] BILIRUBIN UA Negative Negative [facility] PROTEIN UA Trace(A) Negative [facility] EPITHELIAL CELLS, URINE 5-10 /HPF [facility] LEUKOCYTE ESTERASE UA 2+(A) Negative [facility] RBC UA 1 0 - 4 /HPF [facility] Urine specimen (specimen) 11/08/2007 10:36 AM CDT 11/08/2007 10:37 AM CDT us Kun Mccabe MD URINE ORDERABLES Final Resu lt Performing Organization Address City/[facility]/ZIP Co de Phone Number INTERFACE SYSTEM Refer to clinic/hospital department [facility] CLIA# [id number] [address] [place] [address] * CBC WITH DIFFERENTIAL (11/08/2007 10:36 AM CDT) PLATELETS 191 140 - 350 K/uL [facility] HEMOGLOBIN 12.8 11.8 - 14.8 g/dL [facility] RDW 13.0 11.5 - 14.5 % [facility] WBC 7.0 4.0 - 9.8 K/uL [facility] MCH 31.7 27.2 - 32.6 pg [facility] MPV 11.2 9.3 - 12.4 fL [facility] HEMATOCRIT 37.6 35.5 - 44.0 % [facility] RDW-STDEV 44.0 37.1 - 48.7 fL [facility] RBC 4.04 3.90 - 4.90 M/uL [facility] MCHC 34.0 31.5 - 35.5 % [facility] MCV 93.1 82.0 - 99.0 fL [facility] EOSINOPHILS 1 0 - 7 % [facility] EOSINOPHIL ABSOLUTE 0.04 0.00 - 0.70 K/uL [facility] LYMPHOCYTES 25 16 - 45 % [facility] LYMPHOCYTE ABSOLUTE 1.72 0.70 - 4.50 K/uL [facility] BASOPHILS 0 0 - 2 % [facility] BASOPHILS ABSOLUTE 0.02 0.00 - 0.20 K/uL [facility] MONOCYTES 12 3 - 13 % [facility] MONOCYTE ABSOLUTE 0.82 0.10 - 1.30 K/uL [facility] NEUTROPHILS 63 45 - 70 % [facility] NEUTROPHIL ABSOLUTE 4.40 1.90 - 7.00 K/uL [facility] Blood specimen (specimen) 11/08/2007 10:36 AM CDT 11/08/2007 10:36 AM CDT us Kun Mccabe MD HEMATOLOGY ORDERABLES Edite d INTERFACE SYSTEM Refer to clinic/hospital department [facility] CLIA# [id number] [address] [place] [address] documented in this encounter Visit Diagnoses Diagnosis Normal delivery delivery, without mention of indication, delivered, with or without mention of antepartum condition documented in this encounter
--- NOTE | 2024-08-08 09:24 | P.PNAN_ITS ---
Anes - Initial Pre Proc Eval Procedure: Operation Date: 08/08/24 10:30 Proposed Procedures p Total Abdominal Hysterectomy with Bilateral Salpingectomy - Linwood Shoemaker MD Date/Time: 08/08/24 09:24 Surgeon: Linwood Shoemaker MD Pre Op Diagnosis: Intramural, submucous subserous Leiomyoma Patient Data Age: 43 Gender: F Height: 1.57 m Weight: 77.15 kg Allergies Allergy/AdvReac Type Severity Reaction Status Date / Time No Known Allergies Allergy Verified 08/05/24 08:28 Home Medications ?Medication ?Instructions ?Recorded ?Confirmed ?Type tranexamic acid 650 mg tablet 1,300 mg (2 x 650 mg) PO Q8H 5 08/04/24 08/05/24 Rx days #30 tabs Patient hx anesthesia problems: post op nausea/vomiting Family hx anesthesia problems: none Results Review: All pre-operative results and documents have been reviewed as part of the pre- operative evaluation. [facility] Past Medical History Medical History (Updated 08/07/24 @ 08:47 by Melinda Hutchinson CRNA) Abnormal vaginal bleeding Anemia Dysfunctional uterine bleeding Vaginal bleeding Fibroid uterus Social History Social History Smoking status: Never smoker Alcohol intake: never Substance use: never Do You Feel Safe in your Home?: Yes Lack of Transportation: No Lack of Food: Never True Current Housing: I Have Housing Concerned About Future Housing: No Difficulty Paying Gas/Electric Bills: No Difficulty Paying for Meds: No Currently Unemployed: No Education: High School Diploma/GED Difficulty w/ Childcare or Family Care: No Living arrangements: with family Spiritual care concerns: No Anes - Eval Final PreProcedure Day of Procedure 08/08/24 09:24 Patient weight: obese Heart: regular rate and rhythm Lungs: clear to auscultation Airway: Mallampati scale class II Neurological: alert and oriented Last oral intake: >/= 8 hours ASA classification: II Emergent: no Anesthetic plan: proceed Anesthesia type and monitoring: general ETT and standard monitoring Results Review: All pre-operative results and documents have been reviewed as part of the pre- operative evaluation. Informed Consent: The patient's anesthetic plan and its attendant risks and benefits were discussed with the patient/family/POA. Questions were solicited and answers provided to the satisfaction of the patient/family/POA.
[2024-08-08] MEDS: LACTATED RINGERS 1,000 ML 30 ML IV CONT ×2 (09:30→12:33)
[2024-08-08] MEDS: KETOROLAC 15 MG/ML VIAL (*BKC) IV PUSH (09:30)
[2024-08-08] MEDS: ACETAMINOPHEN 500 MG TABLET 1000 MG PO ×3 (09:30→20:55)
[2024-08-08 09:50] LABS: BEDSIDEPREGUCG Negative (Negative)
[2024-08-08] MEDS: SCOPOLAMINE 1 MG PATCH 1 PATCH TRANSDERM (09:53)
--- NOTE | 2024-08-08 10:06 | P.HP_ITS ---
H&P: HPI History of Present Illness Date/Time: 08/08/24 10:06 Chief Complaint: Vaginal bleeding Narrative: This patient is a 43-year-old female with heavy vaginal bleeding and a large fibroid uterus. We have agreed to perform total abdominal hysterectomy and bilateral salpingectomy. She understands risks, benefits, and alternatives. She has completed informed consent process and is ready to proceed. The patient understands the details of the procedure. The procedure has been explained in detail. She understands the risks. She understands that injuries may occur that result in hospitalization, more surgery, and severe illness. She understands risk of hemorrhage and infection. She denies any chest pain or shortness of breath. She denies any nausea, vomiting, fever, chills. Review of Systems Review of Systems: All systems reviewed & are unremarkable except as noted in HPI and below Constitutional: Constitutional: Denies chills, Denies fatigue, Denies fever(s) and Denies weakness Eyes: Eyes: Denies blurry vision, Denies change in vision, Denies loss of peripheral vision, Denies loss of vision, Denies other visual disturbances and Denies eye pain ENT: Denies vertigo, Denies dizziness, Denies hearing loss, Denies mouth pain, Denies nasal obstruction, Denies neck mass and Denies neck pain Cardiovascular: Cardiovascular: Denies chest pain, Denies diaphoresis, Denies syncope, Denies leg edema and Denies dyspnea Respiratory: Respiratory: Denies chest congestion, Denies cough, Denies hemoptysis, Denies dyspnea and Denies wheezing Gastrointestinal: Gastrointestinal: Denies abdominal pain, Denies constipation , Denies diarrhea, Denies nausea and Denies vomiting Genitourinary: Genitourinary: Denies hematuria, Denies change in libido, Denies nocturia, Denies genital lesions, Denies flank pain and Denies urinary urgency Musculoskeletal: Musculoskeletal: Denies abnormal gait, Denies back pain, Denies myalgias, Denies arthralgias, Denies joint swelling, Denies muscle weakness and Denies neck pain Integumentary/Breasts: Skin/Breast: Denies swelling, Denies breast pain, Denies breast mass, Denies dry skin, Denies nipple discharge, Denies unusual bruising and Denies jaundice Neurologic: Denies Neuro-related abnormal movements, Denies Abnormal speech present, Denies abnormal gait, Denies behavioral changes, Denies confusion, Denies vertigo, Denies dizziness, Denies syncope, Denies loss of vision, Denies memory loss, Denies convulsions and Denies weakness Psychiatric: Psychiatric: Denies abnormal sleep pattern, Denies behavioral changes, Denies change in libido, Denies confusion, Denies depression, Denies anhedonia and Denies memory loss Endocrine: Endocrine: Reports no additional endocrine complaints, Denies change in libido and Denies fatigue Hematologic/Lymphatic: Hematologic/Lymphatic: Reports no additional hematologic/lymphatic complaints Allergic/Immunologic: Allergic/Immunologic: Reports no additional allergic/immunologic complaints and Denies wheezing PMFSH Past Medical History Medical History (Updated 08/08/24 @ 10:08 by Linwood Shoemaker MD) Abnormal vaginal bleeding Anemia Dysfunctional uterine bleeding Vaginal bleeding Fibroid uterus Social History Social History Smoking status: Never smoker Alcohol intake: never Substance use: never Do You Feel Safe in your Home?: Yes Lack of Transportation: No Lack of Food: Never True Current Housing: I Have Housing Concerned About Future Housing: No Difficulty Paying Gas/Electric Bills: No Difficulty Paying for Meds: No Currently Unemployed: No Education: High School Diploma/GED Difficulty w/ Childcare or Family Care: No Living arrangements: with family Spiritual care concerns: No Meds Home Medications and Allergies Home Medications ?Medication ?Instructions ?Recorded ?Confirmed ?Type tranexamic acid 650 mg tablet 1,300 mg (2 x 650 mg) PO Q8H 5 08/04/24 08/05/24 Rx days #30 tabs Allergies Allergy/AdvReac Type Severity Reaction Status Date / Time No Known Allergies Allergy Verified 08/08/24 09:41 Vital Signs Vital Signs - 24 hr 08/08/24 09:43 Temperature 97.6 F Pulse Rate 92 Blood Pressure 136/80 Pulse Oximetry 100 Oxygen Delivery Room Air Exam Const: General: cooperative, healthy appearing, comfortable and no acute distress Orientation/consciousness: oriented to person, oriented to place and oriented to time HENMT: Head: normal to inspection Ears: external ears normal Face/Nose/Sinus: Normal external nose present and normal facial exam Face and sinus: normal facial exam Eyes: General: appearance normal, both eyes and all related structures Neck: Neck: normal visual inspection, trachea midline and supple Resp: Auscultation: clear to auscultation bilaterally, no crackles, no rales, no rhonchi and no wheezes Cardio: Rate: regular rate Rhythm: regular rhythm Heart sounds: no click, no murmurs and no rubs GI: GI Palp: No abdominal tenderness, No Soft to palpation, No Tenderness to palpation present (GI) and No Palpable mass present Auscultation: normal bowel sounds Skin: General skin exam: normal color and no rashes or lesions noted Neuro: General: oriented to person, oriented to place and oriented to time Extrem: General: normal to inspection, no joint enlargement, no clubbing, cyanosis or edema, no pedal edema and no calf tenderness Psych: Appearance: grossly normal Mental Status: mental status grossly normal Speech and movement: Normal speech and movement present Assessment and Plan Assessment and plan (1) Intramural uterine fibroid: Code(s): D25.1 - Intramural leiomyoma of uterus Status: Acute (2) Menorrhagia: Code(s): N92.0 - Excessive and frequent menstruation with regular cycle Status: Acute (3) Anemia: Qualifiers: Anemia type: unspecified type Qualified Code(s): D64.9 - Anemia, unspecified Code(s): D64.9 - Anemia, unspecified Status: Acute Plan This patient is a 43-year-old female with heavy vaginal bleeding and a large fibroid uterus. We have agreed to perform total abdominal hysterectomy and bilateral salpingectomy. She understands risks, benefits, and alternatives. She has completed informed consent process and is ready to proceed.
--- NOTE | 2024-08-08 10:09 | WPDHPUPDATE1 ---
History and Physical Update Update Date/Time: 08/08/24 10:09 History and Physical has been reviewed, including an updated exam of the patient. There are NO changes in the patient's condition. Risks, benefits, and alternatives have been discussed and questions answered. Patient agrees to proceed with procedure.
[2024-08-08] MEDS: ceFAZolin 2 GM/D5W 50 ML 2 GM/50 ML BAG IVPB (10:17)
--- NOTE | 2024-08-08 12:16 | S_PTH ---
PATIENT: Nuha Johnson LOC: [facility] U#:[id number] AGE/SX: 43/F ROOM: 289 RE08/08/[address]: Linwood Shoemaker MD : 1980 BED: 00 DIS: 08/10/2024 SPEC #: [id number] RECD: 08/08/24 13:02 STATUS: MIN REHeather #: [id number] SIMONA: 08/08/24 12:[address]: Linwood Shoemaker DEPT: [facility] Surgical RECD BY: Jose Angel Aldana ENTERED: 08/08/24 13:04 SP TYPE: Surgical OTHR DR: Alisha Kamara, AUTOMATION CONSULTANT Tissues: A - Uterus Procedures: Hematoxylin and Eosin Stain Gross and Microscopic Level 5
--- NOTE | 2024-08-08 12:37 | W.PM.PROC2 ---
Procedure Note - Detailed Date of Procedure 08/08/24 Pre-op Diagnosis Intramural, submucous subserous Leiomyoma, menorrhagia, anemia Post-op Diagnosis Same Procedure Performed Total abdominal hysterectomy and bilateral salpingectomy Surgeon Linwood Shoemaker MD Anesthesia General Indications Menorrhagia and anemia Findings 17 cm fibroid uterus, normal-appearing fallopian tubes and ovaries. Description of Procedure The patient was taken to the operating room and placed in supine position, at which time general form of anesthesia was administered by the anesthesia department. The patient was then prepped and draped in the usual fashion for a low transverse incision. Approximately two fingerbreadths above the pubic symphysis, a first knife was used to make a low transverse incision. This was extended down to the level of the fascia. The fascia was nicked in the center and extended in a transverse fashion. The edges of the fascia were grasped with Candi. Both blunt and sharp dissection both caudally and cephalic was then completed consistent with Pfannenstiel technique. The abdominal rectus muscle was divided in the midline and extended in a vertical fashion. Perineum was entered at the high point and extended in a vertical fashion as well. A [place] retractor was put in placed. A bladder blade and upper arm were put in place as well. Uterus was grasped with a double-tooth tenaculum and large and small colon were packed away cephalically and held in place with free wet lap packs and a superior blade. The bladder flap was released with Metzenbaum scissors and then dissected away caudally. The round ligaments were identified, grasped and transected with LigaSure cautery. The suspensory ligament of the ovary and the fallopian tube at the cornual region were identified cauterized and transected with LigaSure cautery. This was done in a bilateral fashion. The lateral aspect of the uterus, the broad ligament and the parametrium were clamped cauterized and transected in a stepwise fashion along the lateral aspect of the uterus. Ureters were identified as anti clamps were placed on the paracervical tissue in stepwise fashion down to the distal aspect of the cervix. Curved Z clamps were placed on the vaginal cough. The vagina was then transected and the cervix was amputated. The vaginal cuff was closed 0 Vicryl running locked fashion. Bilateral fallopian tubes removed with LigaSure cautery. The pelvis is. Pinpoint bleeders were cauterized throughout the pelvis. The packing and Janine retractor were removed. The edges of the fascia were grasped at both corners and a continuous stitch of 1 Vicryl was used to re-approximate the fascia with overlapping in the center. The subcutaneous tissue was irrigated. Cautery was used to create adequate hemostasis and 3-0 Vicryl was used to re-approximate the tissue and the skin edges were re-approximated with sterile jacey. Sterile dressing was applied and Betadine soaked sponge was removed from the vaginal vault and the vaginal vault was wiped clean of any remaining blood. The patient was taken to recovery room in stable condition. Instrument count, needle count, and sponge counts were all correct. Cystoscopy was performed. Blue urine was seen to egress from the bilateral ureteral ostia. Methylene blue had been administered.
[2024-08-08] MEDS: fentaNYL CITRATE INJ (*CRX) 100 MCG/2 ML VIAL 25 MCG IV PUSH ×7 (13:06→14:38)
--- NOTE | 2024-08-08 15:02 | OBPPTRN ---
Patient transferred to post room #289 via bed.
[2024-08-08] MEDS: DEXTROSE 5%/0.45% SOD CHL 1,000 ML 125 ML IV CONT ×2 (15:09→23:09)
[2024-08-08] MEDS: KETOROLAC 30 MG/ML VIAL (*BKC) IV PUSH ×2 (15:09→20:55)
[2024-08-08] MEDS: DOCUSATE SODIUM 100 MG CAPSULE PO (16:00)
[2024-08-08] MEDS: oxyCODONE HCL (*CRX) 5 MG TAB IR 10 MG PO (16:00)
[2024-08-08] MEDS: SIMETHICONE 80 MG TAB.CHEW PO (16:00)
[2024-08-08] MEDS: HYDROmorphone HCL INJ (*CRX) 2 MG/ML VIAL 1 MG IV PUSH (21:37)
[2024-08-09 03:00] VITALS: BP 94/56; PULSE 74; RESP 16; TEMP 36.9; O2SAT 98
[2024-08-09 03:05] VITALS: BP 94/56; PULSE 74; RESP 16; TEMP 36.9; O2SAT 98
[2024-08-09] MEDS: ACETAMINOPHEN 500 MG TABLET 1000 MG PO ×4 (03:07→22:05)
[2024-08-09] MEDS: KETOROLAC 30 MG/ML VIAL (*BKC) IV PUSH (03:07)
[2024-08-09] MEDS: oxyCODONE HCL (*CRX) 5 MG TAB IR 10 MG PO ×2 (05:25→14:36)
[2024-08-09 07:41] VITALS: BP 80/48; PULSE 61; RESP 14; TEMP 36.6; O2SAT 98
[2024-08-09 07:50] VITALS: BP 89/46
[2024-08-09] MEDS: DOCUSATE SODIUM 100 MG CAPSULE PO ×2 (08:01→16:08)
[2024-08-09] MEDS: SIMETHICONE 80 MG TAB.CHEW PO ×3 (08:01→16:08)
[2024-08-09] MEDS: IBUPROFEN 600 MG TABLET PO ×3 (09:24→22:05)
--- NOTE | 2024-08-09 09:57 | PM.GYNPNOP ---
WEIGHTS AND MEASURES INSPECTOR - A/P Postoperative Procedures: Procedures Operation Date: 08/08/24 10:30 Actual Procedure Side Surgeon p Total Abdominal Hysterectomy with Bilateral Salpingectomy, Cystoscopy Bilateral Linwood Shoemaker MD Postoperative day: 1 Postoperative status: doing well Postoperative plan: see orders Time Spent With Patient Time: Total time spent is greater than 50% in coordination of care (as documented) at patient's floor/unit and/or counseling patient: Time with patient: less than 15 minutes WEIGHTS AND MEASURES INSPECTOR- PN:Subj Post-Op Subjective Date/time seen: 08/09/24 09:57 Subjective: patient reports feeling better, patient has no complaints and pain is well controlled Exam Const: General: healthy appearing, comfortable and no acute distress Resp: Auscultation: clear to auscultation bilaterally, no rales, no rhonchi and no wheezes Cardio: Rate: regular rate Heart sounds: no click, no murmurs and no rubs GI: Inspection: non-distended Auscultation: normal bowel sounds Extrem: General: normal to inspection, no pedal edema and no calf tenderness WEIGHTS AND MEASURES INSPECTOR - PN: Obj Data Vital Signs Vital Signs: Vital Signs - 24 hr 08/08/24 12:33 08/08/24 12:40 08/08/24 12:45 Temperature 98.6 F Pulse Rate 74 96 Respiratory Rate 16 10 L Blood Pressure 111/57 L 113/61 Pulse Oximetry 100 100 100 Oxygen Delivery Simple Face Mask Simple Face Mask Simple Face Mask Oxygen Flow Rate 8 8 8 08/08/24 13:00 08/08/24 13:15 08/08/24 13:35 Temperature Pulse Rate 92 95 90 Respiratory Rate 12 12 14 Blood Pressure 122/75 117/65 115/66 Pulse Oximetry 100 100 96 Oxygen Delivery Simple Face Mask Simple Face Mask Room Air Oxygen Flow Rate 8 8 08/08/24 13:50 08/08/24 14:05 08/08/24 14:20 Temperature Pulse Rate 95 95 89 Respiratory Rate 14 13 16 Blood Pressure 117/71 112/79 113/71 Pulse Oximetry 100 96 94 Oxygen Delivery Room Air Room Air Room Air Oxygen Flow Rate 08/08/24 14:35 08/08/24 15:05 08/08/24 19:40 Temperature 98.8 F 98.6 F Pulse Rate 96 103 H 84 Respiratory Rate 14 16 16 Blood Pressure 116/74 117/75 92/55 L Pulse Oximetry 96 100 100 Oxygen Delivery Room Air Oxygen Flow Rate 08/08/24 19:40 08/08/24 23:00 08/09/24 03:00 Temperature 98.2 F 98.5 F Pulse Rate 78 74 Respiratory Rate 16 16 Blood Pressure 104/58 L 94/56 L Pulse Oximetry 98 98 Oxygen Delivery Room Air Oxygen Flow Rate 08/09/24 03:05 08/09/24 07:41 08/09/24 07:50 Temperature 98.5 F 97.9 F Pulse Rate 74 61 Respiratory Rate 16 14 Blood Pressure 94/56 L 80/48 L 89/46 L Pulse Oximetry 98 98 Oxygen Delivery Oxygen Flow Rate Intake/Output Intake/Output: Intake & Output 08/06/24 08/07/24 08/08/24 08/09/24 23:59 23:59 23:59 23:59 Intake Total 1350 Output Total 1125 1625 Balance 225 -1625 Meds/Results Medications: Active Medications Generic Name Dose Route Start Last Admin Trade Name Freq PRN Reason Stop Dose Admin Acetaminophen 1,000 mg 08/08/24 18:00 08/09/24 09:24 Acetaminophen 500 Mg Tablet PO 1,000 mg Q6HR ARNEL Administration Docusate Sodium 100 mg 08/08/24 17:00 08/09/24 08:01 Docusate Sodium 100 Mg Capsule PO 100 mg BID ARNEL Administration Hydromorphone HCl 1 mg 08/08/24 20:29 08/08/24 21:37 Hydromorphone Hcl Inj (*Crx) 2 Mg/Ml Vial IV PUSH 1 mg Q2H PRN Administration Pain Rated 7-10 Dextrose/Sodium Chloride 1,000 mls @ 125 mls/hr 08/08/24 14:45 08/08/24 23:09 Dextrose 5% Sodium Chloride 0.45% IV CONT 125 mls/hr .Q8H ARNEL Administration Ibuprofen 600 mg 08/09/24 12:00 08/09/24 09:24 Ibuprofen 600 Mg Tablet PO 600 mg Q6HR ARNEL Administration Naloxone HCl 0.1 mg 08/08/24 14:45 Naloxone Hcl 0.4 Mg/Ml Vial IV PUSH Q2M PRN Respiratory rate less than 10 Ondansetron HCl 4 mg 08/08/24 14:45 Ondansetron Inj 4 Mg/2 Ml Vial IV PUSH Q6H PRN Nausea Oxycodone HCl 5 mg 08/08/24 14:45 Oxycodone Hcl (*Crx) 5 Mg Tab Ir PO Q4H PRN Pain Rated 4-6 Oxycodone HCl 10 mg 08/08/24 14:45 08/09/24 05:25 Oxycodone Hcl (*Crx) 5 Mg Tab Ir PO 10 mg Q6H PRN Administration Pain Rated 7-10 Simethicone 80 mg 08/08/24 17:00 08/09/24 08:01 Simethicone 80 Mg Tab.Chew PO 80 mg TIDWM ARNEL Administration Labs Labs: Laboratory Results - last 24 hr 08/08/24 09:32 Blood Type O Positive Antibody Screen Negative
[2024-08-09 11:10] VITALS: BP 94/47; PULSE 81; RESP 16; TEMP 37.3; O2SAT 99
--- NOTE | 2024-08-09 17:49 | WPDANESPN ---
Anes - Prog Note Post-Op Date/Time: 08/09/24 17:49 Cardiovascular status: normal Respiratory status: normal Airway patency: baseline Mental status: baseline Post-Op hydration status: normal Vital Signs: Last Vital Signs Temp 37.3 C 08/09/24 11:10 Pulse 81 08/09/24 11:10 Resp 16 08/09/24 11:10 BP 94/47 L 08/09/24 11:10 Pulse Ox 99 08/09/24 11:10 O2 Del Method Room Air 08/08/24 19:40 O2 Flow Rate 8 08/08/24 13:15 Pain Score (VAS): 0 I/O: Intake & Output 08/09/24 08/09/24 08/09/24 07:59 15:59 23:59 Intake Total 480 Output Total 1625 250 Balance -1625 230 Post-procedural complaints: none Patient Feedback: Patient satisfied with anesthetic care.
[2024-08-09 19:57] VITALS: BP 98/58; PULSE 77; RESP 16; TEMP 36.7; O2SAT 100
[2024-08-10] MEDS: ACETAMINOPHEN 500 MG TABLET 1000 MG PO ×2 (03:58→10:03)
[2024-08-10] MEDS: IBUPROFEN 600 MG TABLET PO ×2 (03:58→10:03)
[2024-08-10 07:35] VITALS: BP 101/57; PULSE 74; RESP 18; TEMP 37.2; O2SAT 99
[2024-08-10] MEDS: DOCUSATE SODIUM 100 MG CAPSULE PO (10:04)
[2024-08-10] MEDS: SIMETHICONE 80 MG TAB.CHEW PO (10:04)
--- NOTE | 2024-08-10 10:18 | PM.GYNPNOP ---
FINANCIAL SALES REPRESENTATIVE - A/P Postoperative Procedures: Procedures Operation Date: 08/08/24 10:30 Actual Procedure Side Surgeon p Total Abdominal Hysterectomy with Bilateral Salpingectomy, Cystoscopy Bilateral Linwood Shoemaker MD Postoperative day: 2 Postoperative status: doing well Postoperative plan: see orders Time Spent With Patient Time: Total time spent is greater than 50% in coordination of care (as documented) at patient's floor/unit and/or counseling patient: Time with patient: less than 15 minutes FINANCIAL SALES REPRESENTATIVE- PN:Subj Post-Op Subjective Date/time seen: 08/10/24 10:18 Subjective: patient reports feeling better, patient has no complaints and pain is well controlled Exam Const: General: healthy appearing, comfortable and no acute distress Resp: Auscultation: clear to auscultation bilaterally, no rales, no rhonchi and no wheezes Cardio: Rate: regular rate Heart sounds: no click, no murmurs and no rubs GI: Inspection: non-distended Auscultation: normal bowel sounds Extrem: General: normal to inspection, no pedal edema and no calf tenderness FINANCIAL SALES REPRESENTATIVE - PN: Obj Data Vital Signs Vital Signs: Vital Signs - 24 hr 08/09/24 11:10 08/09/24 19:57 08/09/24 19:57 Temperature 99.2 F 98.1 F Pulse Rate 81 77 Respiratory Rate 16 16 Blood Pressure 94/47 L 98/58 L Pulse Oximetry 99 100 Oxygen Delivery Room Air 08/10/24 07:35 Temperature 98.9 F Pulse Rate 74 Respiratory Rate 18 Blood Pressure 101/57 L Pulse Oximetry 99 Oxygen Delivery Intake/Output Intake/Output: Intake & Output 08/07/24 08/08/24 08/09/24 08/10/24 23:59 23:59 23:59 23:59 Intake Total 1350 480 Output Total 1125 1875 Balance 225 -1395 Meds/Results Medications: Active Medications Generic Name Dose Route Start Last Admin Trade Name Freq PRN Reason Stop Dose Admin Acetaminophen 1,000 mg 08/08/24 18:00 08/10/24 10:03 Acetaminophen 500 Mg Tablet PO 1,000 mg Q6HR ARNEL Administration Docusate Sodium 100 mg 08/08/24 17:00 08/10/24 10:04 Docusate Sodium 100 Mg Capsule PO 100 mg BID ARNEL Administration Hydromorphone HCl 1 mg 08/08/24 20:29 08/08/24 21:37 Hydromorphone Hcl Inj (*Crx) 2 Mg/Ml Vial IV PUSH 1 mg Q2H PRN Administration Pain Rated 7-10 Ibuprofen 600 mg 08/09/24 12:00 08/10/24 10:03 Ibuprofen 600 Mg Tablet PO 600 mg Q6HR ARNEL Administration Naloxone HCl 0.1 mg 08/08/24 14:45 Naloxone Hcl 0.4 Mg/Ml Vial IV PUSH Q2M PRN Respiratory rate less than 10 Ondansetron HCl 4 mg 08/08/24 14:45 Ondansetron Inj 4 Mg/2 Ml Vial IV PUSH Q6H PRN Nausea Oxycodone HCl 5 mg 08/08/24 14:45 Oxycodone Hcl (*Crx) 5 Mg Tab Ir PO Q4H PRN Pain Rated 4-6 Oxycodone HCl 10 mg 08/08/24 14:45 08/09/24 14:36 Oxycodone Hcl (*Crx) 5 Mg Tab Ir PO 10 mg Q6H PRN Administration Pain Rated 7-10 Simethicone 80 mg 08/08/24 17:00 08/10/24 10:04 Simethicone 80 Mg Tab.Chew PO 80 mg TIDWM ARNEL Administration
--- NOTE | 2024-08-10 10:19 | P.DS_ITS ---
DS: Admitting Diagnosis Discharge Date 08/10/2024 Admitting Diagnosis Menorrhagia DS: Discharge Diagnosis Discharge Diagnosis (1) Fibroid uterus: Code(s): D25.9 - Leiomyoma of uterus, unspecified Status: Acute DS: Summary Hospital Course Hospital Course: 23-year-old female who was admitted for hysterectomy for heavy vaginal bleeding anemia, fibroids. Presurgery performed without complications. She tolerated well. She remained in hospital for 2 days. She was ambulating, tolerating p.o. and passing flatus at appropriate time. She safe well controlled throughout. She was discharged home on postoperative day 2. Time Spent with Patient Time attestation: Total time spent providing and/or coordinating discharge services: DS: Data Data Completed and Pending Completed studies during hospitalization: Pending at discharge 08/08/24 12:16 Surgical [PTH] Routine Discharge Plan Discharge Discharging Clinician: Linwood Shoemaker Patient Disposition: Home Activity: pelvic rest Diet: regular Patient Instructions: Antibiotic Form Patient Language: [place] Stand Alone Forms: General Discharge Information Follow-up/Referrals: Linwood Shoemaker MD [Physician] - Discharge Medications: New hydrocodone-acetaminophen 5-325 mg tablet 1 - 2 tablet PO Q6H PRN (Reason: pain) Qty: 25 0RF Discontinued tranexamic acid 650 mg tablet 1,300 mg PO Q8H 5 Days Qty: 30 0RF Date of admission: 08/08/24 07:30 Primary Care Provider: Asad,Alisha Noble Admitting Provider: Linwood Shoemaker Attending physician on admission: Linwood Shoemaker Condition: Stable
== END 2024-08-10 12:05 | disposition home or self-care (01) | DRG 743 ==
LOC: ANHSURGERY 08:50 → ANHOB2 08-09 09:03 → ANHSURGERY 08-09 09:03 → ANHOB2 08-09 09:03
PROVIDERS: Admitting Provider Obstetrics & Gynecology; PCP Nurse Practitioner; Visit Provider Obstetrics & Gynecology
PROC: 0UT94ZZ Resection of Uterus, Percutaneous Endoscopic Approach (ICD-10-PCS; principal; 2024-08-08 10:30)
DX: D25.1 Intramural leiomyoma of uterus (principal); N92.0 Excessive and frequent menstruation with regular cycle; D64.9 Anemia, unspecified; D50.0 Iron deficiency anemia secondary to blood loss (chronic)
CPT/HCPCS: 36415; 86850; 86900; 86901; 88307; 99199; A9270; J0690; J1100; J1171; J1885; J2003; J2250; J2405; J2704; J3010; J7120